=== PATIENT | male | born 1950 | race Caucasian/White ===

== ENCOUNTER → 2016-07-11 | Outpatient (CLI) | payer OTHER, MEDICARE ==
[~2016-07-11] MED LIST: AMLODIPINE BESY10 MG PO; CARVEDILOL12.5 MG PO; EPOGEN; MULTIVITAMIN1 CTB PO; NEXIUM40 MG PO; Rocaltrol0.25 MCG PO; SODIUM BICARB PO; TUMS EXTRA STR750 MG PO
[2016-07-11 12:27] LABS: BASO % 0.6 % (0.0-1.0); EOS # 0.2 10*3/uL (0.0-0.4); EOS % 3.7 % (1.0-4.0); HEMATOCRIT 30.3 % (42.0-52.0); HEMOGLOBIN 10.9 g/dl (14.0-18.0); IG # 0.1 10*3/uL (0.0-0.1); IRF 6.3 % (2.4-13.3); LYMPH # 0.6 10*3/uL (1.3-4.4); LYMPH % 11.8 % (27.0-41.0); MEAN CELL VOLUME 89.9 fl (80.0-94.0); MEAN CORPUSCULAR HGB 32.3 pg (27.0-31.0); MEAN PLATELET VOLUME 8.7 fl (9.6-12.3); MONO # 0.5 10*3/uL (0.1-1.0); MONO % 9.4 % (3.0-9.0); PLATELET COUNT AUTOMATED 259 10*3/uL (130-400); RED BLOOD COUNT 3.37 10*6/uL (4.50-5.90); RED CELL DISTRI WIDTH 11.9 % (0-14.5); RET-He 35.8 pg (32.1-37.9); RETICULOCYTE % 1.47 % (0.50-2.50); WHITE BLOOD COUNT 5.4 10*3/uL (4.8-10.8)
[2016-07-11 12:54] LABS: ALBUMIN 3.2 gm/dl (3.1-4.5); BILIRUBIN, TOTAL 0.6 mg/dl (0.2-1.0); POTASSIUM 3.1 mmol/L (3.5-5.1)
[2016-07-11 13:01] LABS: THYROID STIM HORMONE (HS) 1.12 uIU/ml (0.358-4.75)
[2016-07-11 14:17] LABS: VITAMIN D, 25-HYDROXY 25.6 ng/mL (30-100)
[2016-07-11 14:24] LABS: FERRITIN > 1650.0 ng/mL (22.0-322.0)
== END | disposition home or self-care (01) ==
LOC: LAB 12:02
PROVIDERS: Family Medicine
DX: R53.83 Other fatigue (principal); R79.89 Other specified abnormal findings of blood chemistry

== ENCOUNTER 2017-12-29 21:27 | Inpatient (IN) | payer OTHER, MEDICARE ==
[~2017-12-29] VITALS: Ht 162.5 cm; Wt 76.5 kg
--- NOTE | ~2017-12-29 | CON ---
[place], [place] REPORT OF CONSULTATION NAME: LOU FRAZIER UNIT #: [id number] ROOM: 517 DOCTOR: COTY DELGADO MD BIRTHDATE: [birth year] DOS: 12/30/2017 NEPHROLOGY CONSULTATION REASON FOR CONSULTATION: Management of peritoneal dialysis/the patient known to you. HISTORY OF PRESENT ILLNESS: This is a 67-year-old male who has a past medical history of end-stage renal disease. The patient has been on peritoneal dialysis, followed by my partner, Dr. Pathak. The patient undergoes CAPD 4 exchanges a day, it seems. He tells me his fill volumes have been around 2700 mL and he alternates 1.5 and 2.5 depending on various parameters. I am not clear of the details. He gives a history of hyperlipidemia, secondary hyperparathyroidism, anemia, hypertension. Recently, the patient was not feeling well and it seems he was evaluated for peritonitis. His peritoneal fluid showed cloudy consistency and had a high cell count. He was started on antibiotics with vancomycin and gentamicin intraperitoneal by my partner. Seems he received a few doses of the gentamicin. His culture recently grew out E. coli. The patient did not feel better. Therefore, he presented to the Emergency Room. He was found to have a little bit of a white count and was tachycardic and was admitted for further care. The patient has been performing CAPD himself while in the hospital. I did give instructions to give vancomycin and cefepime intravenously yesterday, which he received. Blood cultures and urine cultures have been sent as well. The patient feels much better today. He states his fluid is clearing up. Cultures have been pending otherwise. He denied current nausea, vomiting or diarrhea. He states his appetite has not been very good, but he is drinking water. He denied feeling volume overloaded presently, but he was starting to get a little bit of edema. ALLERGIES: No known drug allergies. HOME MEDICATIONS: Include a potassium, MiraLax, Zofran, multivitamin, Mag-Ox, Avapro, Auryxia, Nexium, Coreg, Tums, calcitriol. PAST MEDICAL HISTORY: 1. End-stage renal disease, on peritoneal dialysis as stated above. 2. PD catheter placement. 3. Hypertension. 4. GERD. 5. Hyperlipidemia. 6. History of knee surgery. 7. History of prostatectomy. 8. Tonsillectomy and adenoidectomy. 9. Anemia. 10. Hyperphosphatemia. 11. Secondary hyperparathyroidism. FAMILY HISTORY: There are no reports of chronic kidney disease otherwise noncontributory. [place], [place] REPORT OF CONSULTATION NAME: LOU FRAZIER UNIT #: [id number] ROOM: [facility] DOCTOR: COTY DELGADO MD BIRTHDATE: [birth year] SOCIAL HISTORY: No reports of tobacco currently, although he has a previous history of tobacco abuse. Drinks alcohol occasionally. No history of illicit drugs. REVIEW OF SYSTEMS: As per HPI, otherwise, a 10-point review of systems was reviewed and was negative. PHYSICAL EXAMINATION: VITAL SIGNS: Temperature 98.5, pulse 101, respiration rate 18, blood pressure 152/90. GENERAL: He is awake, alert, comfortable, no apparent distress. HEENT: He has no JVD. Sclerae are anicteric. Mucous membranes are somewhat dry. Pharynx is clear. NECK: Supple. Trachea is midline. There is no neck lymphadenopathy or thyromegaly. LUNGS: Clear. No crackles, wheezing, or rales. No tactile fremitus. He is not using accessory muscles of respiration. HEART: S1, S2. No rub, thrill or gallop. ABDOMEN: Mildly distended, soft and nontender to mild palpation. I did not appreciate organomegaly. EXTREMITIES: Had trace edema. There is no lower extremity lymphadenopathy. Distal pulses are 2+. SKIN: Showed no overt rash. There is no petechia or purpura. Skin temperature is warm. NEUROLOGIC: Awake, alert, following commands. Cranial nerves intact. LABORATORY DATA: Hemoglobin 9.4, white count 12.0, platelets 270. BUN 50, creatinine 9.8, glucose 125. Sodium 130, potassium 3.1, CO2 of 29, calcium 8.6, phosphorus 4.3, magnesium 1.5. IMPRESSION: 1. End-stage renal disease, on peritoneal dialysis with continuous ambulatory peritoneal dialysis. 2. Peritonitis with cultures growing Escherichia coli. 3. Leukocytosis. 4. Hypertension. 5. Anemia. 6. History of secondary hyperparathyroidism and hyperphosphatemia. 7. Hypokalemia and hypomagnesemia. PLAN: 1. Would stop IV fluids at this point and encourage oral intake and p.o. fluids. 2. Would replace potassium and magnesium. Place the patient on his daily potassium and magnesium supplementation. 3. The patient clinically is improving. We will follow all cultures and adjust antibiotics. He is on vancomycin and cefepime intravenously for now and I think that is acceptable until culture data is back. The patient was ordered 1 dose of intraperitoneal cefepime as I had discussed with the nurse for today. Eventually, he likely can resume his intraperitoneal gentamicin pending all [place], [place] REPORT OF CONSULTATION NAME: LOU FRAZIER UNIT #: [id number] ROOM: [facility] DOCTOR: COTY DELGADO MD BIRTHDATE: [birth year] culture data and discharge planning. 4. Dose medications for peritoneal dialysis. COTY DELGADO MD CM:CONSTR:REPORT OF CONSULTATION 1146 12/30/17 2158 interface
[2017-12-29 21:30] VITALS: BP 123/81
[2017-12-29 22:16] LABS: HEMATOCRIT 29.9 % (42.0-52.0); HEMOGLOBIN 10.8 g/dl (14.0-18.0); MEAN CELL VOLUME 92.9 fl (80.0-94.0); MEAN CORPUSCULAR HGB 33.5 pg (27.0-31.0); MEAN CORPUSCULAR HGB CONC 36.1 g/dl (33.0-37.0); MEAN PLATELET VOLUME 9.6 fl (9.6-12.3); PLATELET COUNT AUTOMATED 289 10*3/uL (130-400); RED BLOOD COUNT 3.22 10*6/uL (4.50-5.90); RED CELL DISTRI WIDTH 11.9 % (0-14.5); WHITE BLOOD COUNT 14.6 10*3/uL (4.8-10.8)
[2017-12-29 22:18] VITALS: BP 150/88
[2017-12-29] MEDS ORDERED: KLOR-CON SPRIN10 MEQ PO (22:20)
[2017-12-29] MEDS ORDERED: MIRALAX119 GM PO (22:21)
[2017-12-29] MEDS ORDERED: NEPHRONEX900 MCG/5 PO (22:22)
[2017-12-29] MEDS ORDERED: Zofran4 MG SL (22:22)
[2017-12-29] MEDS ORDERED: MAGNESIUM400 MG PO (22:23)
[2017-12-29] MEDS ORDERED: AVAPRO75 MG PO (22:23)
[2017-12-29] MEDS ORDERED: AURYXIA210 MG PO (22:24)
[2017-12-29] MEDS ORDERED: Rocaltrol0.25 MCG PO (22:25)
[2017-12-29 22:31] LABS: ALBUMIN 2.3 gm/dl (3.1-4.5); CREATININE 10.1 mg/dL (0.70-1.30)
[2017-12-29 22:36] LABS: TOTAL CELLS COUNTED 100 #CELLS
[2017-12-29 22:37] LABS: PLATELET SUFFICIENCY NORMAL (NORMAL)
[2017-12-29 22:38] VITALS: BP 140/95
[2017-12-29 23:40] VITALS: BP 160/87
[2017-12-30] VITALS: BP 160/87
[2017-12-30] MEDS ORDERED: DAILY VITE1 EACH PO (00:12)
[2017-12-30] MEDS ORDERED: GENTAMICIN3.5 GM OPH (00:15)
[2017-12-30 06:22] LABS: BASO % 0.2 % (0.0-1.0); EOS % 0.1 % (1.0-4.0); HEMATOCRIT 27.1 % (42.0-52.0); HEMOGLOBIN 9.4 g/dl (14.0-18.0); LYMPH # 0.6 10*3/uL (1.3-4.4); LYMPH % 4.6 % (27.0-41.0); MEAN CELL VOLUME 94.8 fl (80.0-94.0); MEAN CORPUSCULAR HGB 32.9 pg (27.0-31.0); MEAN CORPUSCULAR HGB CONC 34.7 g/dl (33.0-37.0); MEAN PLATELET VOLUME 9.7 fl (9.6-12.3); MONO # 0.9 10*3/uL (0.1-1.0); MONO % 7.3 % (3.0-9.0); NEUT # 10.2 10*3/uL (2.3-7.9); NEUT % 85.4 % (47.0-73.0); PLATELET COUNT AUTOMATED 270 10*3/uL (130-400); RED BLOOD COUNT 2.86 10*6/uL (4.50-5.90); RED CELL DISTRI WIDTH 11.9 % (0-14.5)
[2017-12-30 06:55] LABS: CREATININE 9.79 mg/dL (0.70-1.30); PHOSPHOROUS 4.3 mg/dL (2.5-4.9); POTASSIUM 3.1 mmol/L (3.5-5.1)
[2017-12-30 07:04] LABS: THYROID STIM HORMONE (HS) 0.934 uIU/ml (0.358-4.75)
[2017-12-30 08:00] VITALS: BP 152/90
[2017-12-30 09:06] LABS: VITAMIN D, 25-HYDROXY 14.8 ng/mL (30-100)
[2017-12-30 10:38] LABS: BILIRUBIN NEGATIVE (NEGATIVE); BLOOD TRACE-INTACT (NEGATIVE); CLARITY CLEAR (CLEAR); COLOR YELLOW (YELLOW); GLUCOSE NEGATIVE (NEGATIVE); KETONE NEGATIVE (NEGATIVE); LEUKO ESTERASE NEGATIVE (NEGATIVE); NITRITE NEGATIVE (NEGATIVE); SPECIFIC GRAVITY 1.015 (1.005-1.030)
[2017-12-30 10:59] LABS: BACTERIA 1+; EPITHELIAL CELLS 0-2
[2017-12-30 12:00] VITALS: BP 180/92
[2017-12-30 14:00] VITALS: BP 170/80
[2017-12-30 16:00] VITALS: BP 138/72
[2017-12-30 20:00] VITALS: BP 112/56
[2017-12-31] VITALS: BP 108/50
[2017-12-31 06:25] LABS: HEMATOCRIT 25.8 % (42.0-52.0); HEMOGLOBIN 8.9 g/dl (14.0-18.0); MEAN CELL VOLUME 94.9 fl (80.0-94.0); MEAN CORPUSCULAR HGB 32.7 pg (27.0-31.0); MEAN CORPUSCULAR HGB CONC 34.5 g/dl (33.0-37.0); MEAN PLATELET VOLUME 9.4 fl (9.6-12.3); PLATELET COUNT AUTOMATED 249 10*3/uL (130-400); RED BLOOD COUNT 2.72 10*6/uL (4.50-5.90)
[2017-12-31 06:45] LABS: CREATININE 9.41 mg/dL (0.70-1.30); POTASSIUM 3.4 mmol/L (3.5-5.1)
[2017-12-31 07:09] LABS: PLATELET SUFFICIENCY NORMAL (NORMAL); TOTAL CELLS COUNTED 100 #CELLS
[2017-12-31 08:00] VITALS: BP 142/63
[2017-12-31 12:00] VITALS: BP 137/66
[2017-12-31 16:00] VITALS: BP 141/67
[2017-12-31 20:00] VITALS: BP 143/69
[2018-01-01] VITALS: BP 109/61
[2018-01-01 06:54] LABS: HEMATOCRIT 25.5 % (42.0-52.0); HEMOGLOBIN 8.8 g/dl (14.0-18.0); MEAN CELL VOLUME 95.9 fl (80.0-94.0); MEAN CORPUSCULAR HGB 33.1 pg (27.0-31.0); MEAN CORPUSCULAR HGB CONC 34.5 g/dl (33.0-37.0); MEAN PLATELET VOLUME 9.8 fl (9.6-12.3); PLATELET COUNT AUTOMATED 281 10*3/uL (130-400); RED BLOOD COUNT 2.66 10*6/uL (4.50-5.90); RED CELL DISTRI WIDTH 11.9 % (0-14.5); WHITE BLOOD COUNT 9.3 10*3/uL (4.8-10.8)
[2018-01-01 07:05] LABS: CREATININE 9.86 mg/dL (0.70-1.30)
[2018-01-01 07:10] LABS: POTASSIUM 3.1 mmol/L (3.5-5.1)
[2018-01-01 07:23] LABS: BASOPHILS 1 % (0-1); TOTAL CELLS COUNTED 100 #CELLS
[2018-01-01 07:24] LABS: PLATELET SUFFICIENCY NORMAL (NORMAL); POLYCHROMASIA SLIGHT
[2018-01-01 08:00] VITALS: BP 134/76
[2018-01-01 12:00] VITALS: BP 125/67
[2018-01-01 16:00] VITALS: BP 134/62
[2018-01-01 20:00] VITALS: BP 94/62
[2018-01-02] VITALS: BP 147/71
[2018-01-02 06:51] LABS: HEMATOCRIT 25.9 % (42.0-52.0); MEAN CELL VOLUME 95.2 fl (80.0-94.0); MEAN CORPUSCULAR HGB 33.1 pg (27.0-31.0); MEAN CORPUSCULAR HGB CONC 34.7 g/dl (33.0-37.0); MEAN PLATELET VOLUME 9.3 fl (9.6-12.3); PLATELET COUNT AUTOMATED 298 10*3/uL (130-400); RED BLOOD COUNT 2.72 10*6/uL (4.50-5.90); RED CELL DISTRI WIDTH 11.9 % (0-14.5); WHITE BLOOD COUNT 13.4 10*3/uL (4.8-10.8)
[2018-01-02 07:25] LABS: CREATININE 10.1 mg/dL (0.70-1.30); POTASSIUM 3.7 mmol/L (3.5-5.1)
[2018-01-02 07:44] LABS: PLATELET SUFFICIENCY NORMAL (NORMAL); POLYCHROMASIA SLIGHT; TOTAL CELLS COUNTED 100 #CELLS; TOXIC GRANULATION SLIGHT
[2018-01-02 12:00] VITALS: BP 116/54
== END 2018-01-02 13:30 | disposition home or self-care (01) | DRG 919 ==
LOC: ED 21:27 → 5E 22:42 → EDHOLD 22:42 → 5E 22:50
PROVIDERS: Internal Medicine; Nurse Practitioner Family; Student in an Organized Health Care Education/Training Program
PROC: 5A1D70Z Performance of Urinary Filtration, Intermittent, Less than 6 Hours Per Day (ICD-10-PCS; principal; 2018-01-01)
DX: T85.71XA Infection and inflammatory reaction due to peritoneal dialysis catheter, initial encounter (principal); A41.51 Sepsis due to Escherichia coli [E. coli]; K65.9 Peritonitis, unspecified; E43 Unspecified severe protein-calorie malnutrition; N18.6 End stage renal disease; E87.1 Hypo-osmolality and hyponatremia; I12.0 Hypertensive chronic kidney disease with stage 5 chronic kidney disease or end stage renal disease; D64.9 Anemia, unspecified; D72.810 Lymphocytopenia; E87.6 Hypokalemia; E87.8 Other disorders of electrolyte and fluid balance, not elsewhere classified; R73.9 Hyperglycemia, unspecified; K21.9 Gastro-esophageal reflux disease without esophagitis; E78.5 Hyperlipidemia, unspecified; E21.1 Secondary hyperparathyroidism, not elsewhere classified; Z87.891 Personal history of nicotine dependence; Z90.79 Acquired absence of other genital organ(s); Z99.2 Dependence on renal dialysis; Z80.0 Family history of malignant neoplasm of digestive organs; Z84.89 Family history of other specified conditions; Z79.899 Other long term (current) drug therapy; Z90.89 Acquired absence of other organs; Z68.27 Body mass index [BMI] 27.0-27.9, adult; Y83.8 Other surgical procedures as the cause of abnormal reaction of the patient, or of later complication, without mention of misadventure at the time of the procedure; Y92.89 Other specified places as the place of occurrence of the external cause

== ENCOUNTER 2018-01-12 10:01 | Inpatient (IN) | payer OTHER, MEDICARE ==
[~2018-01-12] VITALS: Ht 165.1 cm; Wt 78.1 kg
--- NOTE | ~2018-01-12 | CON ---
[place], [place] REPORT OF CONSULTATION NAME: LOU FRAZIER [facility] #: [id number] UNIT #: [id number] ROOM: 426 DOCTOR: NATIVIDAD BAPTISTE MDNIGELBERTIN BIRTHDATE: [birth year] DOS: 01/14/2018 GASTROENDOSCOPIC CONSULTATION REPORT HISTORY OF PRESENT ILLNESS: A 68-year-old patient who presented with recurrent emesis, hematemesis. The patient with a peritoneal dialysis dependency, chronic renal failure, dialysis dependent 5 years. He is on a renal transplant candidate list. His peritoneal liquid has been sent for cultures and cultures have been negative; however, he is on antibiotic. PAST MEDICAL HISTORY: Associated systemic hypertension, renal failure, gastroesophageal reflux, and hyperlipidemia. PAST SURGICAL HISTORY: Prostatectomy, peritoneal dialysis catheter placement, tonsillectomy, adenoidectomy. SOCIAL HISTORY: Passive smoker, social alcohol user. FAMILY HISTORY: Noncontributory. ALLERGIES: No known medications. MEDICATIONS: List has been reviewed. REVIEW OF SYSTEMS: HEENT: Denies double vision, blurred vision. RESPIRATORY: Denies shortness of breath. CARDIOVASCULAR: Denies acute chest pain. DIGESTIVE SYSTEM: Hematemesis, nausea, vomiting. PHYSICAL EXAMINATION: VITAL SIGNS: Stable. HEENT: Head normocephalic, nontraumatic. Eyes: Pupils round, reactive. Sclerae nonicteric. Mouth and buccal mucosa benign. NECK: Supple, no thyromegaly, no cervical lymphadenopathy. CHEST: Symmetric anatomy, equal expansion. No wheeze, no rhonchi. HEART: Normal sinus rhythm, no gallop, no murmur. ABDOMEN: Soft. No hepato-organomegaly. Bowel sounds present. Peritoneal dialysis catheter in the left lower quadrant, functional. EXTREMITIES: 1+ pedal edema. NEUROLOGIC: Fully alert, oriented to time, place, person. Sensory, motor intact. Cranial nerves 2-12 intact. LABORATORY DATA: His labs and records reviewed. Initially, he had hypokalemia that has been addressed. His creatinine has been 11.5 with a GFR of 4 and BUN of 57. Lactic acid 1.2. Liver function test normal, alkaline phosphatase 103, amylase and lipase has been normal. INR 1.2. H and H of 9 and 28 with white blood cell of 20 initially. His labs reviewed. His records reviewed. His CT scan of the abdomen and pelvis reassessed. No acute intraperitoneal pathology has been reported. Blood cultures negative and peritoneal dialysate culture [place], [place] REPORT OF CONSULTATION NAME: LOU FRAZIER UNIT #: [id number] ROOM: 426 DOCTOR: EMILE MCKEON,ALEXA BIRTHDATE: [birth year] negative. Ultrasound of the liver, gallbladder sludge, and nonspecific gallbladder wall thickening, although no discrete cholelithiasis identified. The common duct is dilated measuring to 10 mm. Correlation with LFTs were recommended, which was normal. IMPRESSION: Hematemesis, recurrent emesis, renal failure, peritoneal dialysis dependent 4 times a day, ruling out sepsis, ruling out gastroesophageal ulcer disease, systemic hypertension. PLAN AND DISCUSSION: We are going to organize an EGD for concerns above, anemia is expected, protein-calorie malnutrition noticed. Etiology of upper GI bleed under investigation at the present time as mentioned above. Other adjunctive diagnoses as outlined in paragraph past medical and surgical history. The patient already covered on Zosyn. Case has been discussed with his family at bedside. ALEXA BAPTISTE MD CM:CONSTR:REPORT OF CONSULTATION 1826 01/15/18 0437 interface
--- NOTE | ~2018-01-12 | O ---
[place], [place] OPERATIVE NOTE NAME: [facility]RAZIER [id number] UNIT #: [id number] ROOM: 426 DOCTOR: RUFUS MCKEONRUCHI BARBOZAEN BIRTHDATE: [birth year] DOS: 01/15/2018 PREOPERATIVE DIAGNOSES: 1. Chronic renal failure. 2. Secondary peritonitis, infected peritoneal dialysis catheter. POSTOPERATIVE DIAGNOSES: 1. Chronic renal failure. 2. Secondary peritonitis, infected peritoneal dialysis catheter. PROCEDURES: 1. Insertion of left subclavian temporary vascular access for dialysis. 2. Removal of peritoneal dialysis catheter. SURGEON: Dr. Hooper. SALON SHAMPOO ASSISTANT: Chucky, PGY2 and Michelle, medical student year 3. DRAINS: None. INDICATIONS: This is a 68-year-old gentleman, on peritoneal dialysis for roughly 5 years, who presented recently with an episode of secondary peritonitis dialysis catheter treated as an outpatient with resistance/recurrent infection. He is now for removal of his catheter as the source as well as for placement of temporary venous access for hemodialysis while his peritonitis clears. Risks, benefits and possible complications were discussed with the patient at the bedside preoperatively at length and he agrees informed consent. DESCRIPTION OF PROCEDURE: The patient was brought to the operating suite and placed on the table in the supine position. Adequate conscious sedation was obtained by the anesthesia staff. The upper chest and bilateral necks were prepped and draped in the usual sterile fashion. With adequate conscious sedation, the patient was placed in Trendelenburg position and the field block was placed at the infraclavicular area for attempted insertion of a subclavian temporary dialysis catheter. Field block was placed in the infraclavicular space. Once this was done, the subclavian vein was cannulated without difficulty percutaneously and a guidewire passed by Seldinger technique under fluoroscopic visualization. The skin incision was slightly lengthened at the insertion point of the guidewire and then the tract was serially dilated with the small dilators, which were supplied with the temporary Vas-Cath kit. Once this was done under direct fluoroscopic visualization, a 14.5-Spanish dual lumen catheter was passed into the central venous system over the guidewire under direct fluoroscopic control and guidewire removed. This was seen to have adequate withdrawal of venous blood and then was flushed first with saline and then hep locked with 1.6 mL and 1.2 mL of heparin in the proximal and distal ports respectively. This was then secured with 3-0 nylon and dressing applied. Attention was then directed to removal of his peritoneal dialysis catheter. The patient was reprepped and draped of the abdomen in the usual sterile fashion. With the patient still under monitored anesthesia control and adequate conscious [place], [place] OPERATIVE NOTE NAME: LOU FRAZIER UNIT #: [id number] ROOM: 426 DOCTOR: RUCHI HOOPER MD BIRTHDATE: [birth year] sedation, a field block was placed around the infraumbilical incision for the patient's procedure prior placement of this peritoneal dialysis catheter. Small incision was made and carried through the subcutaneous fat down to the anterior fascia. This was incised sharply with additional injection of a local anesthetic using 0.5% Marcaine. Dissection was carried down through the anterior fascia with a small transverse incision and bluntly and with cautery through the muscle to expose the catheter down to the Oniel cuff at the peritoneal surface. This was quite adherent due to the chronic nature of his dialysis catheter (having been in place for 5 years), and given this, the patient was converted to a general anesthetic by the Anesthesia staff without difficulty. Once this was done, a little bit of further Marcaine was injected into the peritoneal surface and around the cuff and this was then incised with sharp and cautery dissection, catching the corner of this with a stay suture of 3-0 Vicryl. This was released circumferentially and the patient immediately had a randhawa of somewhat acidic fluid into the small incision with the catheter then removed. Tip was placed sterilely for culture and cut away from the rest of the catheter, which was then discarded. With the specimen obtained, attention was directed to closure in this small area of roughly 12-13 mm of dissection around the peritoneum was then closed en srikanth to close the peritoneum and the rectus fascia, using [id number] sutures of 2-0 Vicryl and tying these together. The fascia was then closed over this with 2-0 Vicryl and the skin edges were then approximated with subdermal 3-0 Vicryl and subcuticular 4-0 Monocryl once the wound was checked for hemostasis and seemed to be adequate. ____ point of the catheter at the skin lateral, this was left open to allow the subcutaneous tunnel from his tunneled peritoneal dialysis catheter to drain adequately and gauze dressing was applied. The patient tolerated this well. A total of 15 mL of local anesthetic injected. He was allowed to awaken in the room and was taken to the recovery area after extubation with all sponge, needle and instrument counts correct at the end of the procedure. He had chest x-ray done postoperative, which shows good position of the catheter and no pneumothorax. RUCHI HOOPER MD CM:OPRECORD:OPERATIVE NOTE 1702 [id number] RUCHI HOOPER MD 01/15/18 1746 interface
--- NOTE | ~2018-01-12 | O ---
[place], [place] OPERATIVE NOTE NAME: [facility]RAZIER [id number] UNIT #: [id number] ROOM: 426 DOCTOR: NATIVIDAD BAPTISTE MDNIGELBERTIN BIRTHDATE: [birth year] DOS: 01/14/2018 INDICATIONS: This 68-year-old was presented with hematemesis. The patient with renal failure and peritoneal dialysis dependent. The patient's acute issues have been addressed, stabilized for EGD. PROCEDURE: Today's procedure part of investigation is EGD plus biopsy photographic series. PREMEDICATION: Propofol. SCOPE: Olympus forward-viewing gastroscope Q10 video. REPORT: After putting the patient in left lateral position and application of lubricant to the scope, the scope was introduced; thereafter, under direct visualization, advanced through the length of esophagus without difficulty. Diffuse esophageal ulcerations, particularly at lower esophagus was noticed. These are secondary to bile reflux. Hiatal hernia was noticed. The scarring of the ulceration on the ulcerations is nearly blocking the lower esophagus sphincter. Meticulously scope was negotiated through this anatomy into the gastric pouch into duodenal bulb, second part, which is consistent with moderate duodenitis. Antral biopsy for H. pylori was obtained. GI reflexion of the scope reveals hypertrophic folds of the cardia of the stomach. Photographed bile was suctioned out at the distant margin of one of the esophageal ulcers, also biopsied for documentation of scar as well as photographic series. The patient extubated, tolerated procedure well. IMPRESSION: An diffuse esophageal ulcers secondary to reflux, hiatal hernia, bile reflux, duodenitis, gastritis. PLAN AND DISCUSSION: we need to keep this gentleman on a double dose Protonix as well as seeing if he can tolerate 1 gram of Carafate slurry 2 hours before meals and Gaviscon 1 tablet at bedtime, elevation of the head of the bed 6 inch all time. This patient definitely benefit from having some prokinetics on board i.e. metoclopramide, if he does not show any adverse side effect I would recommend 2.5 mg 1 hour before dinner is to be considered. We will discuss Nephrology and increasing gait over 1 week If he did not find any tardive dyskinesia symptoms in him at least 5 mg before dinner. His diet to be GERD. The renal diet and aggressive ulcer therapy is to prevent as well as heel existing problem regarding his reflux. [place], [place] OPERATIVE NOTE NAME: LOU FRAZIER UNIT #: [id number] ROOM: 426 DOCTOR: EMILE MCKEON,ALEXA BIRTHDATE: [birth year] ALEXA BAPTISTE MD CM:OPRECORD:OPERATIVE NOTE 56 45 ALEXA BAPTISTE MD 01/14/181946 interface
--- NOTE | ~2018-01-12 | EKG ---
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
--- NOTE | ~2018-01-12 | CON ---
[place], [place] REPORT OF CONSULTATION NAME: LOU FRAZIER UNIT #: [id number] ROOM: 426 DOCTOR: TED CARCAMO MD BIRTHDATE: [birth year] DOS: 01/12/2018 REASON FOR CONSULTATION: PD associated peritonitis. HISTORY OF PRESENT ILLNESS: This is a 68-year-old male recently seen by me for PD associated peritonitis with E. coli and was getting 2 grams cefazolin with dialysis sessions and according to the patient, he never felt better and was actually getting worse with more abdominal pain, not with fever or chills. No nausea, vomiting, no diarrhea, no urinary discomfort. On presentation, his labs noted WBC of 20.6. Lactic acid was normal. His imaging, CT scan of abdomen has been ordered, pending results. He has been started on vancomycin and Zosyn. His fluid from PD dialysate has been sent for cultures. PAST MEDICAL HISTORY: Significant for end-stage renal disease, on peritoneal dialysis, coagulopathy, hyperlipidemia. PAST SURGICAL HISTORY: History of knee surgery, history of prostatectomy, tonsillectomy, adenectomy. SOCIAL HISTORY: Former smoker, nonalcoholic, no illicit drug use. FAMILY HISTORY: Father , in a motor vehicle accident. Mother has history of breast cancer. ALLERGIES: No known drug allergies. MEDICATIONS: As per the EMR. REVIEW OF SYSTEMS: A 12-point review of systems has been done and pertinent negatives positives were included in HPI, rest are noncontributory. PHYSICAL EXAMINATION: VITAL SIGNS: Temperature 97.8, pulse rate 118, respiratory rate 16, blood pressure 147/89, oxygen saturation 95% on room air. GENERAL: The patient is alert, oriented x 3, in moderate distress. HEENT: Normocephalic, atraumatic. EYES: No lesions. Nonicteric. ENT: No lesions. NECK: Trachea midline. No thyromegaly. HEART: S1, S2 normal. No murmurs, rubs or gallops. LUNGS: Air entry bilaterally equal. No wheeze or crackles. ABDOMEN: Distended with rebound tenderness and guarding or rigidity. EXTREMITIES: 2+ pitting edema. NEUROLOGIC: Cranial nerves 2-12 grossly intact. LABORATORY DATA AND IMAGING: Reviewed mentioned in the HPI. ASSESSMENT AND PLAN: PD associated peritonitis. Rule out secondary causes of peritonitis. [place], [place] REPORT OF CONSULTATION NAME: LOU FRAZIER UNIT #: [id number] ROOM: 426 DOCTOR: TED CARCAMO MD BIRTHDATE: [birth year] PLAN: Agree with getting a CT scan of abdomen and pelvis. Okay to continue broad spectrum antibiotics with vancomycin and Zosyn. Discussed plan with Dr. Pathak from Nephrology and if at all needed his PD catheter can be removed and a temporary hemodialysis should be considered. Pain management as per the primary team. Thank you for your consult. Please call for any questions. Gisella Carcamo MD CM:CONSTR:REPORT OF CONSULTATION 11 01/28/18 0917 interface
[2018-01-12 10:01] VITALS: BP 145/81
[~2018-01-12 10:01] MED LIST changes: +AURYXIA210 MG PO; +AVAPRO75 MG PO; +DAILY VITE1 EACH PO; +GENTAMICIN3.5 GM OPH; +KLOR-CON SPRIN10 MEQ PO; +MAGNESIUM400 MG PO; +MIRALAX119 GM PO; +NEPHRONEX900 MCG/5 PO; +Zofran4 MG SL
[2018-01-12 10:17] LABS: HEMATOCRIT 28.8 % (42.0-52.0); HEMOGLOBIN 9.6 g/dl (14.0-18.0); MEAN CELL VOLUME 98.6 fl (80.0-94.0); MEAN CORPUSCULAR HGB 32.9 pg (27.0-31.0); MEAN CORPUSCULAR HGB CONC 33.3 g/dl (33.0-37.0); MEAN PLATELET VOLUME 8.8 fl (9.6-12.3); PLATELET COUNT AUTOMATED 527 10*3/uL (130-400); RED BLOOD COUNT 2.92 10*6/uL (4.50-5.90); RED CELL DISTRI WIDTH 12.3 % (0-14.5); WHITE BLOOD COUNT 20.6 10*3/uL (4.8-10.8)
[2018-01-12 10:34] LABS: ALBUMIN 1.3 gm/dl (3.1-4.5); ALKALINE PHOSPHATASE 108 U/L (45-117); BUN 57 mg/dl (7-24); CHLORIDE 91 mmol/L (98-107); POTASSIUM 3.2 mmol/L (3.5-5.1); SGOT/AST 23 IU/L (3-35); SGPT/ALT < 6 U/L (12-78); SODIUM 131 mmol/L (136-145); TOTAL PROTEIN 5.5 gm/dL (6.4-8.2)
[2018-01-12 10:39] LABS: PLATELET SUFFICIENCY HIGH (NORMAL); POLYCHROMASIA SLIGHT; TOTAL CELLS COUNTED 100 #CELLS
[2018-01-12 12:00] VITALS: BP 147/89
[2018-01-12] MEDS ORDERED: HEPARIN IV (13:16)
[2018-01-12] MEDS ORDERED: SODIUM CHLORIDE IV (13:16)
[2018-01-12] MEDS ORDERED: MEGACE 40400 MG/10 PO (13:17)
[2018-01-12] MEDS ORDERED: CEFAZOLIN1 GM/10 M1 IV (13:18)
[2018-01-12 14:51] LABS: INTERNATIONAL NORM RATIO 2.7 (2.0-3.5)
[2018-01-12 15:07] LABS: TROPONIN I 0.017 ng/ml (<0.045)
[2018-01-12 16:00] VITALS: BP 139/71
[2018-01-12 17:47] LABS: BILIRUBIN NEGATIVE (NEGATIVE); BLOOD 1+ (NEGATIVE); CLARITY CLEAR (CLEAR); COLOR YELLOW (YELLOW); GLUCOSE NEGATIVE (NEGATIVE); KETONE NEGATIVE (NEGATIVE); LEUKO ESTERASE NEGATIVE (NEGATIVE); NITRITE NEGATIVE (NEGATIVE); PH 7.5 (5.0-9.0); UROBILINOGEN 0.2 E.U./dl (0.2-1.0)
[2018-01-12 17:56] LABS: BACTERIA 2+
[2018-01-12 19:46] LABS: BODY FLUID WBC 1758 /uL
[2018-01-12 19:55] LABS: BF LYMPHOCYTES 1 %; BF MACROPHAGES 10 %; BF NEUTROPHILS 89 %
[2018-01-12 20:00] VITALS: BP 151/72
[2018-01-13] VITALS (12 sets, daily range): BP systolic 114–156; BP diastolic 58–77
[2018-01-13 06:32] LABS: ACT PARTIAL THROMBO TIME 39.2 SECONDS (20.8-31.5); INTERNATIONAL NORM RATIO 2.5 (2.0-3.5)
[2018-01-13 06:33] LABS: HEMATOCRIT 22.9 % (42.0-52.0); MEAN CELL VOLUME 99.1 fl (80.0-94.0); MEAN CORPUSCULAR HGB 32.5 pg (27.0-31.0); MEAN CORPUSCULAR HGB CONC 32.8 g/dl (33.0-37.0); MEAN PLATELET VOLUME 9.3 fl (9.6-12.3); PLATELET COUNT AUTOMATED 442 10*3/uL (130-400); RED BLOOD COUNT 2.31 10*6/uL (4.50-5.90); RED CELL DISTRI WIDTH 12.4 % (0-14.5); WHITE BLOOD COUNT 14.9 10*3/uL (4.8-10.8)
[2018-01-13 06:38] LABS: HEMOGLOBIN 7.5 g/dl (14.0-18.0)
[2018-01-13 06:42] LABS: ALBUMIN 1.9 gm/dl (3.1-4.5); ALKALINE PHOSPHATASE 82 U/L (45-117); BUN 63 mg/dl (7-24); CHLORIDE 92 mmol/L (98-107); PHOSPHOROUS 5.8 mg/dL (2.5-4.9); POTASSIUM 3.4 mmol/L (3.5-5.1); SGOT/AST 18 IU/L (3-35); SODIUM 133 mmol/L (136-145); TOTAL PROTEIN 5.1 gm/dL (6.4-8.2)
[2018-01-13 06:43] LABS: SGPT/ALT < 6 U/L (12-78)
[2018-01-13 07:22] LABS: BASOPHILS 2 % (0-1); PLATELET SUFFICIENCY HIGH (NORMAL); POLYCHROMASIA SLIGHT; TOTAL CELLS COUNTED 100 #CELLS
[2018-01-13 07:57] LABS: VITAMIN D, 25-HYDROXY 15.7 ng/mL (30-100)
[2018-01-13 15:13] LABS: HEMOGLOBIN 8.2 g/dl (14.0-18.0)
[2018-01-14] VITALS (15 sets, daily range): BP systolic 146–163; BP diastolic 66–86
[2018-01-14 06:35] LABS: ALKALINE PHOSPHATASE 79 U/L (45-117); CHLORIDE 94 mmol/L (98-107); POTASSIUM 3.4 mmol/L (3.5-5.1); SGOT/AST 18 IU/L (3-35); SODIUM 135 mmol/L (136-145); TOTAL PROTEIN 4.9 gm/dL (6.4-8.2)
[2018-01-14 06:37] LABS: BUN 73 mg/dl (7-24); SGPT/ALT < 6 U/L (12-78)
[2018-01-14 07:04] LABS: HEMATOCRIT 23.4 % (42.0-52.0); HEMOGLOBIN 7.8 g/dl (14.0-18.0); MEAN CORPUSCULAR HGB 31.6 pg (27.0-31.0); MEAN CORPUSCULAR HGB CONC 33.3 g/dl (33.0-37.0); MEAN PLATELET VOLUME 9.6 fl (9.6-12.3); PLATELET COUNT AUTOMATED 400 10*3/uL (130-400); RED BLOOD COUNT 2.47 10*6/uL (4.50-5.90); RED CELL DISTRI WIDTH 16.4 % (0-14.5); WHITE BLOOD COUNT 13.7 10*3/uL (4.8-10.8)
[2018-01-14 07:12] LABS: MEAN CELL VOLUME 94.7 fl (80.0-94.0)
[2018-01-14 07:18] LABS: ACT PARTIAL THROMBO TIME 34.3 SECONDS (20.8-31.5); INTERNATIONAL NORM RATIO 2.1 (2.0-3.5)
[2018-01-14 08:16] LABS: BASOPHILS 1 % (0-1); PLATELET SUFFICIENCY HIGH (NORMAL); POLYCHROMASIA SLIGHT; TOTAL CELLS COUNTED 100 #CELLS
[2018-01-14 21:03] LABS: HEMOGLOBIN 9.2 g/dl (14.0-18.0)
[2018-01-15] VITALS (10 sets, daily range): BP systolic 139–161; BP diastolic 77–93
[2018-01-15 07:02] LABS: HEMATOCRIT 27.5 % (42.0-52.0); HEMOGLOBIN 9.2 g/dl (14.0-18.0); MEAN CELL VOLUME 92.9 fl (80.0-94.0); MEAN CORPUSCULAR HGB 31.1 pg (27.0-31.0); MEAN CORPUSCULAR HGB CONC 33.5 g/dl (33.0-37.0); PLATELET COUNT AUTOMATED 349 10*3/uL (130-400); RED BLOOD COUNT 2.96 10*6/uL (4.50-5.90); RED CELL DISTRI WIDTH 17.7 % (0-14.5); WHITE BLOOD COUNT 15.7 10*3/uL (4.8-10.8)
[2018-01-15 07:33] LABS: CREATININE 14.4 mg/dL (0.70-1.30); POTASSIUM 3.4 mmol/L (3.5-5.1)
[2018-01-15 07:36] LABS: BASOPHILS 1 % (0-1); PLATELET SUFFICIENCY NORMAL (NORMAL); TOTAL CELLS COUNTED 100 #CELLS
[2018-01-16 07:06] LABS: HEPATITIS B SURFACE AG Negative (Negative); HEPATITIS C VIRUS ANTIBODY <0.1 s/co (0.0-0.9)
== END 2018-01-15 18:43 | disposition short-term general hospital (02) | DRG 919 ==
LOC: ED 10:01 → 4E 12:22 → EDHOLD 12:22 → 4E 12:32
PROVIDERS: Emergency Medicine; Internal Medicine; Internal Medicine Nephrology; Student in an Organized Health Care Education/Training Program
PROC: 30233N1 Transfusion of Nonautologous Red Blood Cells into Peripheral Vein, Percutaneous Approach (ICD-10-PCS; principal; 2018-01-13)
PROC: 0DB58ZX Excision of Esophagus, Via Natural or Artificial Opening Endoscopic, Diagnostic (ICD-10-PCS; 2018-01-14)
PROC: 0DB78ZX Excision of Stomach, Pylorus, Via Natural or Artificial Opening Endoscopic, Diagnostic (ICD-10-PCS; 2018-01-14)
PROC: 02H633Z Insertion of Infusion Device into Right Atrium, Percutaneous Approach (ICD-10-PCS; 2018-01-15)
PROC: 5A1D70Z Performance of Urinary Filtration, Intermittent, Less than 6 Hours Per Day (ICD-10-PCS; 2018-01-15)
PROC: 0WPGX3Z Removal of Infusion Device from Peritoneal Cavity, External Approach (ICD-10-PCS; 2018-01-15)
DX: T85.71XA Infection and inflammatory reaction due to peritoneal dialysis catheter, initial encounter (principal); A41.9 Sepsis, unspecified organism; K65.9 Peritonitis, unspecified; E43 Unspecified severe protein-calorie malnutrition; N18.6 End stage renal disease; K29.71 Gastritis, unspecified, with bleeding; K29.81 Duodenitis with bleeding; E87.1 Hypo-osmolality and hyponatremia; D68.9 Coagulation defect, unspecified; I12.0 Hypertensive chronic kidney disease with stage 5 chronic kidney disease or end stage renal disease; D62 Acute posthemorrhagic anemia; E87.6 Hypokalemia; E87.8 Other disorders of electrolyte and fluid balance, not elsewhere classified; K44.9 Diaphragmatic hernia without obstruction or gangrene; E78.5 Hyperlipidemia, unspecified; R73.9 Hyperglycemia, unspecified; E83.39 Other disorders of phosphorus metabolism; K21.0 Gastro-esophageal reflux disease with esophagitis; Y83.8 Other surgical procedures as the cause of abnormal reaction of the patient, or of later complication, without mention of misadventure at the time of the procedure; Z90.89 Acquired absence of other organs; Z90.79 Acquired absence of other genital organ(s); Z79.899 Other long term (current) drug therapy; Z99.2 Dependence on renal dialysis; Z87.891 Personal history of nicotine dependence; Z80.0 Family history of malignant neoplasm of digestive organs; Z84.89 Family history of other specified conditions; Y92.89 Other specified places as the place of occurrence of the external cause; Z68.25 Body mass index [BMI] 25.0-25.9, adult; K83.8 Other specified diseases of biliary tract

== ENCOUNTER 2018-02-15 15:24 | Inpatient (IN) | payer OTHER, MEDICARE ==
[~2018-02-15] VITALS: Ht 165.1 cm; Wt 65.3 kg
[2018-02-15] VITALS (8 sets, daily range): BP systolic 114–165; BP diastolic 68–87
[~2018-02-15 15:24] MED LIST changes: +CEFAZOLIN1 GM/10 M1 IV; +HEPARIN IV; +MEGACE 40400 MG/10 PO; +SODIUM CHLORIDE IV
[2018-02-15 19:54] LABS: HEMATOCRIT 21.1 % (42.0-52.0); HEMOGLOBIN 6.7 g/dl (14.0-18.0); MEAN CELL VOLUME 93.8 fl (80.0-94.0); MEAN CORPUSCULAR HGB 29.8 pg (27.0-31.0); MEAN CORPUSCULAR HGB CONC 31.8 g/dl (33.0-37.0); MEAN PLATELET VOLUME 9.6 fl (9.6-12.3); PLATELET COUNT AUTOMATED 373 10*3/uL (130-400); RED BLOOD COUNT 2.25 10*6/uL (4.50-5.90); RED CELL DISTRI WIDTH 15.9 % (0-14.5); WHITE BLOOD COUNT 14.6 10*3/uL (4.8-10.8)
[2018-02-15 20:30] LABS: BASOPHILS 1 % (0-1); PLATELET SUFFICIENCY NORMAL (NORMAL); TOTAL CELLS COUNTED 100 #CELLS; TOXIC GRANULATION SLIGHT
[2018-02-15 20:32] LABS: STOMATOCYTE FEW
[2018-02-15 23:40] LABS: HEMATOCRIT 23.1 % (42.0-52.0); HEMOGLOBIN 7.5 g/dl (14.0-18.0); MEAN CELL VOLUME 91.7 fl (80.0-94.0); MEAN CORPUSCULAR HGB 29.8 pg (27.0-31.0); MEAN CORPUSCULAR HGB CONC 32.5 g/dl (33.0-37.0); MEAN PLATELET VOLUME 9.8 fl (9.6-12.3); PLATELET COUNT AUTOMATED 357 10*3/uL (130-400); RED BLOOD COUNT 2.52 10*6/uL (4.50-5.90); RED CELL DISTRI WIDTH 15.7 % (0-14.5); WHITE BLOOD COUNT 12.6 10*3/uL (4.8-10.8)
[2018-02-16] VITALS: BP 154/86
[2018-02-16] LABS: BASOPHILS 1 % (0-1); TOTAL CELLS COUNTED 100 #CELLS
[2018-02-16 00:01] LABS: PLATELET SUFFICIENCY NORMAL (NORMAL)
[2018-02-16 07:03] LABS: HEMATOCRIT 24.6 % (42.0-52.0); HEMOGLOBIN 7.9 g/dl (14.0-18.0); MEAN CELL VOLUME 92.1 fl (80.0-94.0); MEAN CORPUSCULAR HGB 29.6 pg (27.0-31.0); MEAN CORPUSCULAR HGB CONC 32.1 g/dl (33.0-37.0); MEAN PLATELET VOLUME 9.8 fl (9.6-12.3); PLATELET COUNT AUTOMATED 379 10*3/uL (130-400); RED BLOOD COUNT 2.67 10*6/uL (4.50-5.90); RED CELL DISTRI WIDTH 15.9 % (0-14.5); WHITE BLOOD COUNT 13.9 10*3/uL (4.8-10.8)
[2018-02-16 07:20] LABS: BASOPHILS 1 % (0-1); PLATELET SUFFICIENCY NORMAL (NORMAL); POLYCHROMASIA SLIGHT; TOTAL CELLS COUNTED 100 #CELLS; TOXIC GRANULATION SLIGHT
[2018-02-16 07:31] LABS: ALBUMIN 1.9 gm/dl (3.1-4.5); POTASSIUM 4.1 mmol/L (3.5-5.1)
[2018-02-16 07:35] LABS: CREATININE 4.39 mg/dL (0.70-1.30); TOTAL PROTEIN 5.9 gm/dL (6.4-8.2)
[2018-02-16 08:00] VITALS: BP 173/82
[2018-02-16 12:00] VITALS: BP 148/70
[2018-02-16 12:52] LABS: HEMATOCRIT 24.8 % (42.0-52.0); HEMOGLOBIN 7.8 g/dl (14.0-18.0)
[2018-02-16 16:00] VITALS: BP 176/86
[2018-02-16 16:45] LABS: HEMATOCRIT 27.5 % (42.0-52.0); HEMOGLOBIN 8.7 g/dl (14.0-18.0); MEAN CELL VOLUME 88.1 fl (80.0-94.0); MEAN CORPUSCULAR HGB 27.9 pg (27.0-31.0); MEAN CORPUSCULAR HGB CONC 31.6 g/dl (33.0-37.0); MEAN PLATELET VOLUME 9.6 fl (9.6-12.3); PLATELET COUNT AUTOMATED 357 10*3/uL (130-400); RED BLOOD COUNT 3.12 10*6/uL (4.50-5.90); RED CELL DISTRI WIDTH 19.1 % (0-14.5)
[2018-02-16 17:08] LABS: BASOPHILS 1 % (0-1); PLATELET SUFFICIENCY NORMAL (NORMAL); TOTAL CELLS COUNTED 100 #CELLS; TOXIC GRANULATION SLIGHT
== END 2018-02-16 18:10 | disposition home or self-care (01) | DRG 682 ==
LOC: ED 15:24 → 4E 15:53 → EDHOLD 15:53 → 4E 15:59
PROVIDERS: Internal Medicine
PROC: 30233N1 Transfusion of Nonautologous Red Blood Cells into Peripheral Vein, Percutaneous Approach (ICD-10-PCS; principal; 2018-02-15)
DX: I12.0 Hypertensive chronic kidney disease with stage 5 chronic kidney disease or end stage renal disease (principal); N18.6 End stage renal disease; K22.10 Ulcer of esophagus without bleeding; R53.83 Other fatigue; E78.5 Hyperlipidemia, unspecified; D63.1 Anemia in chronic kidney disease; K21.9 Gastro-esophageal reflux disease without esophagitis; Z99.2 Dependence on renal dialysis; Z79.899 Other long term (current) drug therapy; Z90.79 Acquired absence of other genital organ(s); Z80.9 Family history of malignant neoplasm, unspecified

== ENCOUNTER 2018-05-29 04:03 | Inpatient (IN) | payer MEDICARE ==
[2018-05-29] VITALS (10 sets, daily range): BP systolic 127–216; BP diastolic 71–120
[~2018-05-29] VITALS: Ht 165.1 cm; Wt 50.6 kg
--- NOTE | ~2018-05-29 | EKG ---
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
[2018-05-29 04:34] LABS: BASO # 0.1 10*3/uL (0.0-0.1); BASO % 0.7 % (0.0-1.0); EOS # 0.2 10*3/uL (0.0-0.4); EOS % 1.3 % (1.0-4.0); HEMATOCRIT 40.4 % (42.0-52.0); HEMOGLOBIN 12.6 g/dl (14.0-18.0); LYMPH # 2.2 10*3/uL (1.3-4.4); LYMPH % 12.1 % (27.0-41.0); MEAN CELL VOLUME 101.3 fl (80.0-94.0); MEAN CORPUSCULAR HGB 31.6 pg (27.0-31.0); MEAN CORPUSCULAR HGB CONC 31.2 g/dl (33.0-37.0); MEAN PLATELET VOLUME 10.1 fl (9.6-12.3); MONO # 0.8 10*3/uL (0.1-1.0); MONO % 4.4 % (3.0-9.0); NEUT # 14.6 10*3/uL (2.3-7.9); NEUT % 80.8 % (47.0-73.0); PLATELET COUNT AUTOMATED 284 10*3/uL (130-400); RED BLOOD COUNT 3.99 10*6/uL (4.50-5.90); RED CELL DISTRI WIDTH 15.2 % (0-14.5); WHITE BLOOD COUNT 18.1 10*3/uL (4.8-10.8)
[2018-05-29] MEDS ORDERED: LISINOPRIL10 M1 PO (04:37)
[2018-05-29 04:43] LABS: ACT PARTIAL THROMBO TIME 25.8 SECONDS (20.8-31.5); INTERNATIONAL NORM RATIO 1.1 (2.0-3.5)
[2018-05-29 05:04] LABS: ALBUMIN 2.9 gm/dl (3.1-4.5); CREATININE 6.16 mg/dL (0.70-1.30); POTASSIUM 4.2 mmol/L (3.5-5.1); TOTAL PROTEIN 7.6 gm/dL (6.4-8.2)
[2018-05-29 05:06] LABS: TROPONIN I 0.025 ng/ml (<0.045)
--- NOTE | 2018-05-29 06:00 | NUR ---
A 68, admitted to [facility]U, under the services of MILO Moctezuma DO with a diagnosis of CHF, HTN, RESP. FAILURE. Chief complaint is SHORTNESS OF BREATH. Patient arrived via stretcher from ER. Monitor applied. Initial assessment completed. Vital signs taken and recorded. MILO MOCTEZUMA DO notified of admission to the unit. Orders received. See assessment for past medical history, medications and allergies. Patient and/or family oriented to unit. [facility] visitation policy reviewed. Clothing/patient valuable form completed. HOLLY CALDERON A
[2018-05-29] MEDS ORDERED: ESOMEPRAZOLE MA40 M1 PO (06:18)
[2018-05-29] MEDS ORDERED: LIPITOR10 MG PO (06:21)
[2018-05-29] MEDS ORDERED: COLACE100 MG PO (06:22)
[2018-05-29] MEDS ORDERED: MAGNESIUM OXID400 MG PO (06:23)
--- NOTE | 2018-05-29 06:39 | NUR ---
NEPHROLOGY ANSWERING NOTIFIED OF ROUTINE CONSULT, CALL BACK NUMBER PROVIDED.
--- NOTE | 2018-05-29 06:40 | NUR ---
SPOKE WITH DR. BOLTON REGARDING CONSULT. PATIENT CONDITION AND LABS REVIEWED. ORDERS REVIEWED.
[2018-05-29 06:59] LABS: PHOSPHOROUS 4.2 mg/dL (2.5-4.9)
--- NOTE | 2018-05-29 07:11 | NUR ---
NOTIFIED DIALYSIS THAT PATIENT NEEDS SCHEDULED FOR A ROUTINE TREATMENT AND THAT [facility] WILL PROVIDE FURTHER ORDERS.
--- NOTE | 2018-05-29 08:53 | NUR ---
Awake and alert. Spouse at bedside. Awaiting [facility] RN for RX.
--- NOTE | 2018-05-29 09:51 | NUR ---
Emesis of undigested foood. Zofran given and effective. Also medicated for c/o headache.
--- NOTE | 2018-05-29 13:04 | NUR ---
Dr. Pathak in to evaulate. Nitro to off, States headache is better. meter tester primary called in report given.
--- NOTE | 2018-05-29 19:23 | NUR ---
ASSUMED CARE FROM CIELO OSBORN. PATIENT DENIES ANY PAIN, DISCOMFORT OR SHORTNESS OF BREATHE UPON ASSESSMENT. PATIENT IS ABLE TO AMBULATE TO BSC WITH MINIMAL ASSIST. SKIN W/D/I, PATIENT REFUSES OMER HOSE AT THIS TIME. PATIENT NSR ON THE MONITOR. CALL LIGHT WITHIN REACH. SEE ASSESSMENT.
[2018-05-30] VITALS: BP 110/74
[2018-05-30 04:00] VITALS: BP 132/83
[2018-05-30 06:07] LABS: BASO # 0.1 10*3/uL (0.0-0.1); BASO % 1.2 % (0.0-1.0); EOS # 0.2 10*3/uL (0.0-0.4); EOS % 3.4 % (1.0-4.0); HEMATOCRIT 35.9 % (42.0-52.0); LYMPH # 1.7 10*3/uL (1.3-4.4); LYMPH % 33.1 % (27.0-41.0); MEAN CELL VOLUME 101.4 fl (80.0-94.0); MEAN CORPUSCULAR HGB 31.1 pg (27.0-31.0); MEAN CORPUSCULAR HGB CONC 30.6 g/dl (33.0-37.0); MEAN PLATELET VOLUME 10.4 fl (9.6-12.3); MONO # 0.5 10*3/uL (0.1-1.0); MONO % 10.5 % (3.0-9.0); NEUT # 2.6 10*3/uL (2.3-7.9); NEUT % 51.2 % (47.0-73.0); PLATELET COUNT AUTOMATED 225 10*3/uL (130-400); RED BLOOD COUNT 3.54 10*6/uL (4.50-5.90); WHITE BLOOD COUNT 5.1 10*3/uL (4.8-10.8)
[2018-05-30 06:17] LABS: ALBUMIN 2.5 gm/dl (3.1-4.5); CREATININE 4.66 mg/dL (0.70-1.30); FREE T4 1.23 ng/dl (0.76-1.46); POTASSIUM 4.3 mmol/L (3.5-5.1); TOTAL PROTEIN 6.4 gm/dL (6.4-8.2)
[2018-05-30 06:21] LABS: THYROID STIM HORMONE (HS) 1.58 uIU/ml (0.358-4.75)
[2018-05-30 07:01] LABS: VITAMIN D, 25-HYDROXY 47.1 ng/mL (30-100)
[2018-05-30 08:00] VITALS: BP 159/89
--- NOTE | 2018-05-30 08:23 | NUR ---
Awake and alert. Hemodialysis in progress. Dr. Coburn in and transfer to telemetry [facility].
--- NOTE | 2018-05-30 08:55 | NUR ---
PHYSICAL THERAPY PAtient at dialysis. Yuliya Jiménez,PT
--- NOTE | 2018-05-30 09:00 | NUR ---
Employment Adjudicator in to talk to patient. Patient states lives at home with his . There are 4 steps in the home. Physician: Dr. Agusto Fernandes [facility]: [facility] Home health services: Rehab at the [facility] currently Patient's level of ADLs: INDEPENDENT Patient has working utilities: yes DME: walker or a cane prn to steady himself Follow-up physician's appointment after d/c: will be made by the hospitalist nurse director upon discharge Does patient want to access PORTAL?: no Discharge plan discussed with patient. He lives at home with his . He is independent in his ADLs and ambulation. Discussed home health care services and he goes to the [facility] for therapy currently. He is dialysis MWF, chair time is 11am, and his transports. When medically stable he will be discharged to home with the resumption of his OP therapy at the [facility]. JORDY ARELLANO
--- NOTE | 2018-05-30 09:30 | NUR ---
Patient not available as he is in dialysis. Maegan Umana OTR/L
--- NOTE | 2018-05-30 11:05 | NUR ---
Dialysis near end. pt. tolerated well.
[2018-05-30 12:00] VITALS: BP 154/99
--- NOTE | 2018-05-30 14:11 | NUR ---
dIALYSIS COMPLETE TOOK MEAL WELL. sPOUSE IN TO VISIT. tRANsferred to [facility] via bed with belongings.
--- NOTE | 2018-05-30 14:13 | NUR ---
PHYSICAL THERAPY Patient evaluated on 5, full evaluation to follow. Continue with PT as per plan of care with fall, 02 and acute debility precautions. Will require SNF. PAtient is moderate complexity via chart review, tests and evaluation: 28969. Thank you for this referral. Yuliya Jiménez,PT
--- NOTE | 2018-05-30 14:14 | NUR ---
PHYSICAL THERAPY Patient evaluated on ICCU, full evaluation to follow. Continue with PT as per plan of care with fall and acute debility precautions. Home with family (A) and home health Rn and PT. PAtient is moderate complexity via chart review, tests and evaluation: 94348. Thank you for this referral. Yuliya Jiménez,PT
[2018-05-30 16:00] VITALS: BP 132/82
--- NOTE | 2018-05-30 17:00 | NUR ---
PATIENT RESTING AT THIS TIME WITH VISITOR PRESENT IN ROOM. NO VOICED COMPLAINTS. CALL LIGHT WITHIN REACH.
[2018-05-30 20:00] VITALS: BP 158/88
[2018-05-31] VITALS: BP 143/75
[2018-05-31 07:09] LABS: ALBUMIN 2.8 gm/dl (3.1-4.5); CREATININE 6.01 mg/dL (0.70-1.30); POTASSIUM 4.6 mmol/L (3.5-5.1)
[2018-05-31 07:21] LABS: BASO # 0.1 10*3/uL (0.0-0.1); BASO % 1.1 % (0.0-1.0); EOS # 0.2 10*3/uL (0.0-0.4); EOS % 2.4 % (1.0-4.0); HEMATOCRIT 41.4 % (42.0-52.0); LYMPH # 1.5 10*3/uL (1.3-4.4); LYMPH % 22.8 % (27.0-41.0); MEAN CELL VOLUME 99.5 fl (80.0-94.0); MEAN CORPUSCULAR HGB 32.2 pg (27.0-31.0); MEAN CORPUSCULAR HGB CONC 32.4 g/dl (33.0-37.0); MEAN PLATELET VOLUME 10.2 fl (9.6-12.3); MONO # 0.6 10*3/uL (0.1-1.0); MONO % 8.8 % (3.0-9.0); NEUT # 4.2 10*3/uL (2.3-7.9); NEUT % 64.4 % (47.0-73.0); PLATELET COUNT AUTOMATED 253 10*3/uL (130-400); RED BLOOD COUNT 4.16 10*6/uL (4.50-5.90); RED CELL DISTRI WIDTH 14.9 % (0-14.5); WHITE BLOOD COUNT 6.6 10*3/uL (4.8-10.8)
[2018-05-31 07:36] LABS: HEMOGLOBIN 13.4 g/dl (14.0-18.0)
--- NOTE | 2018-05-31 09:00 | NUR ---
Jingle Writer in to see patient. No new needs or request at this time. He denies any home needs. When medically stable he will be discharged to home with the resumption of his OP therapy.
[2018-05-31 12:00] VITALS: BP 157/85
--- NOTE | 2018-05-31 13:06 | NUR ---
DR BOLTON WAQS IN TO SEE PT. HE ADJUSTED PTS MEDICATIONS. HE ALSO ORDERED CHEST CT FOR TOMORROW AND STATED "IT IS TO BE DONE AFTER DIALYSIS AND NOT BEFORE."MESSAGE SENT TO FLOOR
--- NOTE | 2018-05-31 14:55 | NUR ---
PHYSICAL THERAPY Patient was eating lunch earlier and now resting comfortably in bed following am dialysis treatment. Patient reports feeling very exhausted at the moment and requested to remain in bed to sleep. Will continue per POC as tolerated. Haile Bullock, [employer]ANG[employer] CATCHER
[2018-05-31 16:00] VITALS: BP 128/77
[2018-05-31 20:00] VITALS: BP 146/83
--- NOTE | 2018-05-31 20:10 | NUR ---
PT RESTING COMFORTABLY. NO QUESTIONS/CONCERNS AT THIS TIME. BED LOW. CALL POLLOCK IN REACH
[2018-06-01] VITALS: BP 143/72
[2018-06-01 06:56] LABS: BASO # 0.1 10*3/uL (0.0-0.1); BASO % 0.7 % (0.0-1.0); EOS # 0.2 10*3/uL (0.0-0.4); EOS % 1.6 % (1.0-4.0); HEMOGLOBIN 13.5 g/dl (14.0-18.0); LYMPH # 1.4 10*3/uL (1.3-4.4); LYMPH % 14.1 % (27.0-41.0); MEAN CELL VOLUME 99.8 fl (80.0-94.0); MEAN CORPUSCULAR HGB 32.8 pg (27.0-31.0); MEAN CORPUSCULAR HGB CONC 32.9 g/dl (33.0-37.0); MEAN PLATELET VOLUME 9.8 fl (9.6-12.3); MONO # 0.8 10*3/uL (0.1-1.0); MONO % 7.9 % (3.0-9.0); NEUT # 7.6 10*3/uL (2.3-7.9); NEUT % 75.1 % (47.0-73.0); PLATELET COUNT AUTOMATED 235 10*3/uL (130-400); RED BLOOD COUNT 4.11 10*6/uL (4.50-5.90); WHITE BLOOD COUNT 10.2 10*3/uL (4.8-10.8)
[2018-06-01 07:18] LABS: CREATININE 4.97 mg/dL (0.70-1.30); POTASSIUM 4.2 mmol/L (3.5-5.1)
[2018-06-01 08:00] VITALS: BP 144/62
--- NOTE | 2018-06-01 08:23 | NUR ---
CALLED DR BEARD ANSWERING SERVICE REGARDING DIALYSIS TODAY. AWAITING CALL BACK
[2018-06-01 12:00] VITALS: BP 152/86
--- NOTE | 2018-06-01 12:10 | NUR ---
REPORT RECIEVED FROM DRESS FINISHER AT THIS TIME. STATES THEY TOOK OFF 2.3K AND GAVE 1 DOSE OF ALBUMIN
--- NOTE | 2018-06-01 12:30 | NUR ---
PATIENT BACK ON FLOOR FROM DIALYSIS AT THIS TIME. VITAL SIGNS STABLE. RN WILL CONTINUE TO MONITOR
--- NOTE | 2018-06-01 13:50 | NUR ---
PATIENT DONE WITH REDI-CAT AT THIS TIME.
--- NOTE | 2018-06-01 14:25 | NUR ---
PATIENT TO CT AT THIS TIME
--- NOTE | 2018-06-01 14:45 | NUR ---
PATIENT BACK ROM CT AT THIS TIME. IN STABLE CONDITION
[2018-06-01 16:00] VITALS: BP 135/90
--- NOTE | 2018-06-01 17:42 | NUR ---
PATIENT PROVIDED WITH TYLENOL FOR C/O HEADACHE AT THIS TIME. RN WILL CONTINUE TO MONITOR
--- NOTE | 2018-06-01 18:46 | NUR ---
PATIENT STATES EARLIER MEDICATION EFFECTIVE
[2018-06-01 20:00] VITALS: BP 125/74
--- NOTE | 2018-06-01 20:24 | NUR ---
ASSUMED CARE OF PATIENT. PATIENT IS RESTING IN BED WITH EASY AND REGULAR RESPERS ON ROOM AIR. ASSESSMENT IS COMPLETE WITH NO C/O OR S/S OF DISTRESS NOTED AT THIS TIME. BED IS LOW, LOCKED, AND CALL LIGHT IS WITHIN REACH. SEE SHIFT ASSESSMENT.
--- NOTE | 2018-06-01 22:26 | NUR ---
2200 MEDICATIONS GIVEN AT THIS TIME, PATIENT TOLERATED WELL. CALL LIGHT IS WITHIN REACH.
[2018-06-02] VITALS: BP 150/87
--- NOTE | 2018-06-02 10:30 | NUR ---
PT MEDICATED WITH ZOFRAN AT HIS REQUEST FOR C/O NAUSEA.
[2018-06-02 12:00] VITALS: BP 112/72
[2018-06-02] MEDS ORDERED: LISINOPRIL2.5 MG PO (12:22)
[2018-06-02] MEDS ORDERED: CARVEDILOL3.125 MG PO (12:22)
--- NOTE | 2018-06-02 13:10 | NUR ---
PT DISCHARGED AT THIS TIME WITH SPOUSE TO HOME.
--- NOTE | 2018-06-02 13:10 | NUR ---
Discharge instructions reviewed with patient/family. Patient receptive and verbalizes understanding. Follow-up care arranged. Written instructions given to patient/family. EPI MCLAUGHLIN
--- NOTE | 2018-06-02 16:07 | NUR ---
PHYSICAL THERAPY CO-SIGN I approve of the Phyical Therapy notes written above. HAO MERCHANT PT
[2018-06-03 12:06] LABS: A/G RATIO 0.9 (0.7-1.7); ALPHA-1-GLOBULIN 0.3 g/dL (0.0-0.4); ALPHA-2-GLOBULIN 0.8 g/dL (0.4-1.0); BETA GLOBULIN 0.9 g/dL (0.7-1.3); GAMMA GLOBULIN 1.6 g/dL (0.4-1.8); GLOBULIN, TOTAL 3.5 g/dL (2.2-3.9); M-SPIKE Not Observed g/dL (Not Observed); TOTAL PROTEIN, SERUM 6.5 g/dL (6.0-8.5)
[2018-07-10] MEDS ORDERED: COREG6.25 MG PO (09:07)
== END 2018-06-02 13:14 | disposition home or self-care (01) | DRG 291 ==
LOC: ED 04:03 → EDHOLD 05:19 → ICCU 05:19 → 4E 05-30 13:51
PROVIDERS: Internal Medicine; Internal Medicine Nephrology; Student in an Organized Health Care Education/Training Program; ADMIT Internal Medicine
PROC: 5A1D70Z Performance of Urinary Filtration, Intermittent, Less than 6 Hours Per Day (ICD-10-PCS; principal; 2018-05-29)
PROC: 5A1D70Z Performance of Urinary Filtration, Intermittent, Less than 6 Hours Per Day (ICD-10-PCS; 2018-05-30)
DX: I13.2 Hypertensive heart and chronic kidney disease with heart failure and with stage 5 chronic kidney disease, or end stage renal disease (principal); J96.01 Acute respiratory failure with hypoxia; N18.6 End stage renal disease; I50.23 Acute on chronic systolic (congestive) heart failure; I16.1 Hypertensive emergency; E44.0 Moderate protein-calorie malnutrition; R65.10 Systemic inflammatory response syndrome (SIRS) of non-infectious origin without acute organ dysfunction; D63.1 Anemia in chronic kidney disease; K21.9 Gastro-esophageal reflux disease without esophagitis; E87.5 Hyperkalemia; E78.5 Hyperlipidemia, unspecified; R73.9 Hyperglycemia, unspecified; I50.9 Heart failure, unspecified; Z87.891 Personal history of nicotine dependence; Z90.49 Acquired absence of other specified parts of digestive tract; Z79.891 Long term (current) use of opiate analgesic; Z68.21 Body mass index [BMI] 21.0-21.9, adult; Z99.2 Dependence on renal dialysis; D53.9 Nutritional anemia, unspecified; K81.1 Chronic cholecystitis; Z85.46 Personal history of malignant neoplasm of prostate; Z80.3 Family history of malignant neoplasm of breast; Z80.0 Family history of malignant neoplasm of digestive organs

== ENCOUNTER → 2018-07-10 | Outpatient (CLI) | payer OTHER, MEDICARE ==
[~2018-07-10] MED LIST changes: +CARVEDILOL3.125 MG PO; +COLACE100 MG PO; +COREG6.25 MG PO; +ESOMEPRAZOLE MA40 M1 PO; +LIPITOR10 MG PO; +LISINOPRIL10 M1 PO; +LISINOPRIL2.5 MG PO; +MAGNESIUM OXID400 MG PO
--- NOTE | ~2018-07-10 | ST ---
[place], [place] EXERCISE STRESS TEST REPORT NAME: LOU FRAZIER [facility] #: [id number] UNIT #: [id number] ROOM: DOCTOR: VALERIANO DE ANDA MD BIRTHDATE: [birth year] DOS: 07/10/2018 LEXISCAN STRESS EKG REFERRING PHYSICIAN: [facility] transplant, Dr. Fernandes. INDICATIONS: Preop and shortness of breath. The patient underwent standard protocol Lexiscan stress EKG. Baseline EKG is normal sinus with nonspecific ST-T wave changes. The patient had a baseline heart rate of 68 with a blood pressure of 180/80. The patient's peak heart rate was 95 with a blood pressure of 186/78. The patient had no chest pain, no EKG changes, no arrhythmias. SUMMARY OF FINDINGS: Unremarkable Lexiscan stress EKG. Please see separate report for perfusion scan imaging. VALERIANO DE ANDA MD CM:STRESS:EXERCISE STRESS TEST REPORT [id number] VALERIANO DE ANDA MD
--- NOTE | 2018-07-10 08:05 | NUR ---
INFORMED CONSENT OBTAINED FOR A LEXISCAN STRESS TEST WITH DR. DE ANDA. RESTING EKG NSR WITH A HT RT OF 68 AND BP OF 180/86. BREATH SOUNDS CLEAR BILATERAL WITH AN SPO2 OF 99% VIA RA. COMPLETED ONE MINUTE OF A LEXISCAN PROTOCOL RECEIVING LEXISCAN 0.4 MG OVER 10 SECONDS. DEVELOPED A "WEIRD" FEELING THAT WAS RELIEVED IN RECOVERY. HAD A PEAK HT RT OF 81, WITH A BP OF 172/82. LAST RECOVERY HT RT OF 98, WITH A BP OF 186/78. AWAITING NUCLEAR IMAGING IN STABLE CONDITION.
== END | disposition home or self-care (01) ==
LOC: CARD 01:59
DX: Z01.810 Encounter for preprocedural cardiovascular examination (principal); R53.81 Other malaise; R06.02 Shortness of breath

== ENCOUNTER → 2020-04-28 | Outpatient (CLI) | payer MEDICARE ==
[2020-04-28 11:00] LABS: BASO % 0.6 % (0.0-1.0); EOS # 0.1 10*3/uL (0.0-0.4); EOS % 1.9 % (1.0-4.0); HEMATOCRIT 35.1 % (42.0-52.0); LYMPH # 0.7 10*3/uL (1.3-4.4); LYMPH % 13.7 % (27.0-41.0); MEAN CELL VOLUME 89.8 fl (80.0-94.0); MEAN CORPUSCULAR HGB 29.7 pg (27.0-31.0); MEAN PLATELET VOLUME 10.6 fl (9.6-12.3); MONO # 0.5 10*3/uL (0.1-1.0); MONO % 10.2 % (3.0-9.0); NEUT # 3.9 10*3/uL (2.3-7.9); NEUT % 72.8 % (47.0-73.0); PLATELET COUNT AUTOMATED 207 10*3/uL (130-400); RED BLOOD COUNT 3.91 10*6/uL (4.50-5.90); RED CELL DISTRI WIDTH 13.2 % (0-14.5); WHITE BLOOD COUNT 5.3 10*3/uL (4.8-10.8)
[2020-04-28 11:27] LABS: ALBUMIN 3.5 gm/dl (3.1-4.5); CREATININE 1.93 mg/dL (0.70-1.30); POTASSIUM 4.1 mmol/L (3.5-5.1)
[2020-04-29 15:10] LABS: CYCLOSPORINE, BLOOD 99 ng/mL (100-400)
== END | disposition home or self-care (01) ==
LOC: LAB 10:22
PROVIDERS: Specialist; ATTEND Internal Medicine Nephrology
DX: T86.90 Unspecified complication of unspecified transplanted organ and tissue (principal); B34.9 Viral infection, unspecified; Z94.0 Kidney transplant status

== ENCOUNTER → 2020-06-25 | Outpatient (CLI) | payer MEDICARE | END | disposition home or self-care (01) | LOC: LAB 13:23 | PROVIDERS: ATTEND Nurse Practitioner Primary Care | DX: C61 Malignant neoplasm of prostate (principal) ==

== ENCOUNTER → 2020-10-05 | Outpatient (CLI) | payer MEDICARE ==
[2020-10-05 13:40] LABS: PTH INTACT 327.2 pg/mL (18.5-88.0); VITAMIN D, 25-HYDROXY 16.1 ng/mL (30-100)
== END | disposition home or self-care (01) ==
LOC: LAB 12:00
PROVIDERS: ATTEND Internal Medicine Nephrology
DX: E21.3 Hyperparathyroidism, unspecified (principal)

== ENCOUNTER → 2021-03-04 | Outpatient (CLI) | payer MEDICARE ==
[2021-03-04 11:31] LABS: BASO % 0.8 % (0.0-1.0); EOS # 0.2 10*3/uL (0.0-0.4); EOS % 4.2 % (1.0-4.0); HEMATOCRIT 39.9 % (42.0-52.0); LYMPH % 19.6 % (27.0-41.0); MEAN CELL VOLUME 92.6 fl (80.0-94.0); MEAN CORPUSCULAR HGB 30.9 pg (27.0-31.0); MEAN CORPUSCULAR HGB CONC 33.3 g/dl (33.0-37.0); MEAN PLATELET VOLUME 10.5 fl (9.6-12.3); MONO # 0.5 10*3/uL (0.1-1.0); MONO % 9.9 % (3.0-9.0); NEUT # 3.2 10*3/uL (2.3-7.9); NEUT % 64.1 % (47.0-73.0); PLATELET COUNT AUTOMATED 198 10*3/uL (130-400); RED BLOOD COUNT 4.31 10*6/uL (4.50-5.90); RED CELL DISTRI WIDTH 13.8 % (0-14.5); RETICULOCYTE % 1.82 % (0.50-2.50)
[2021-03-04 11:55] LABS: ALBUMIN 3.8 gm/dl (3.1-4.5); BUN 27 mg/dl (7-24); CHLORIDE 109 mmol/L (98-107); CHOLESTEROL 129 mg/dL (<200); CREATININE 2.14 mg/dL (0.70-1.30); GAMMA GLUTAMYL TRANSPEPTIDASE 53 U/L (15-85); POTASSIUM 4.5 mmol/L (3.5-5.1); SGOT/AST 21 IU/L (3-35); SGPT/ALT 25 U/L (12-78); SODIUM 139 mmol/L (136-145); THYROXINE (T4) TOTAL 9.8 ug/dl (4.5-12.1); TOTAL PROTEIN 7.9 gm/dL (6.4-8.2); TRIGLYCERIDES 120 mg/dl (<150)
[2021-03-04 11:56] LABS: ALKALINE PHOSPHATASE 96 U/L (45-117); IRON 76 ug/dL (65-175); LDL CHOLESTEROL 66 mg/dL (9-159); T3 UPTAKE 34 % (31-39); TOTAL IRON BINDING CAPACITY 284 ug/dl (250-450)
[2021-03-04 12:54] LABS: PTH INTACT 336.9 pg/mL (18.5-88.0); VITAMIN D, 25-HYDROXY 44.9 ng/mL (30-100)
[2021-03-04 12:56] LABS: FERRITIN 494.3 ng/mL (22.0-322.0)
[2021-03-04 17:06] LABS: BILIRUBIN Negative (Negative); BLOOD Negative (Negative); CLARITY Clear (Clear); COLOR Yellow (Yellow); GLUCOSE Negative (Negative); KETONE Trace (Negative); LEUKO ESTERASE Negative (Negative); NITRITE Negative (Negative); PH 5.5 (4.5-8.0); SPECIFIC GRAVITY 1.015 (1.001-1.030)
[2021-03-04 17:18] LABS: BACTERIA 2+; EPITHELIAL CELLS 0-2
== END | disposition home or self-care (01) ==
LOC: LAB 10:46
PROVIDERS: Family Medicine; ATTEND Internal Medicine Nephrology
DX: Z12.5 Encounter for screening for malignant neoplasm of prostate (principal); R79.89 Other specified abnormal findings of blood chemistry; R53.83 Other fatigue; E78.5 Hyperlipidemia, unspecified; E55.9 Vitamin D deficiency, unspecified; E21.3 Hyperparathyroidism, unspecified

== ENCOUNTER → 2021-06-27 | Outpatient (CLI) | payer MEDICARE | END | disposition home or self-care (01) | LOC: LAB 14:43 | PROVIDERS: ATTEND Urology | DX: N40.1 Benign prostatic hyperplasia with lower urinary tract symptoms (principal) ==

== ENCOUNTER → 2021-08-26 | Outpatient (CLI) | payer MEDICARE ==
[2021-08-26 10:54] LABS: VITAMIN D, 25-HYDROXY 48.8 ng/mL (30-100)
== END | disposition home or self-care (01) ==
LOC: LAB 07:43
PROVIDERS: ATTEND Internal Medicine Nephrology
DX: E21.3 Hyperparathyroidism, unspecified (principal)

== ENCOUNTER → 2021-10-04 | Outpatient (CLI) | payer MEDICARE ==
[2021-10-04 14:59] LABS: BASO % 0.7 % (0.0-1.0); EOS # 0.1 10*3/uL (0.0-0.4); LYMPH % 20.8 % (27.0-41.0); MEAN CELL VOLUME 92.8 fl (80.0-94.0); MEAN CORPUSCULAR HGB CONC 34.5 g/dl (33.0-37.0); MEAN PLATELET VOLUME 10.4 fl (9.6-12.3); MONO # 0.4 10*3/uL (0.1-1.0); MONO % 9.6 % (3.0-9.0); NEUT % 65.1 % (47.0-73.0); PLATELET COUNT AUTOMATED 162 10*3/uL (130-400); RED BLOOD COUNT 4.31 10*6/uL (4.50-5.90); RED CELL DISTRI WIDTH 12.7 % (0-14.5); RETICULOCYTE % 1.54 % (0.50-2.50); WHITE BLOOD COUNT 4.6 10*3/uL (4.8-10.8)
[2021-10-04 15:01] LABS: BILIRUBIN Negative (Negative); BLOOD 1+ (Negative); CLARITY Clear (Clear); COLOR Yellow (Yellow); GLUCOSE Negative (Negative); KETONE Negative (Negative); LEUKO ESTERASE Negative (Negative); NITRITE Negative (Negative); UROBILINOGEN 0.2 E.U./dl (0.0-1.0)
[2021-10-04 15:19] LABS: POTASSIUM 4.2 mmol/L (3.5-5.1); TOTAL PROTEIN 6.9 gm/dL (6.4-8.2)
[2021-10-04 15:25] LABS: CREATININE 1.77 mg/dL (0.70-1.30)
[2021-10-04 15:37] LABS: VITAMIN D, 25-HYDROXY 61.6 ng/mL (30-100)
[2021-10-04 15:38] LABS: FERRITIN 274.9 ng/mL (22.0-322.0)
[2021-10-04 16:00] LABS: RBC 31-40 rbc/hpf (0-2); WBC 0-2 wbc/hpf (0-5)
[2021-10-04 16:01] LABS: BACTERIA TRACE
== END ==
LOC: LAB 14:31
PROVIDERS: ATTEND Family Medicine
DX: E78.5 Hyperlipidemia, unspecified (principal); E55.9 Vitamin D deficiency, unspecified; R53.83 Other fatigue; R79.89 Other specified abnormal findings of blood chemistry; R74.8 Abnormal levels of other serum enzymes

== ENCOUNTER → 2021-12-08 | Outpatient (CLI) | payer MEDICARE ==
[2021-12-08 09:55] LABS: MEAN CELL VOLUME 94.9 fl (80.0-94.0); MEAN CORPUSCULAR HGB 31.9 pg (27.0-31.0); MEAN CORPUSCULAR HGB CONC 33.7 g/dl (33.0-37.0); MEAN PLATELET VOLUME 10.3 fl (9.6-12.3); PLATELET COUNT AUTOMATED 182 10*3/uL (130-400); RED BLOOD COUNT 4.32 10*6/uL (4.50-5.90); RED CELL DISTRI WIDTH 12.9 % (0-14.5); WHITE BLOOD COUNT 7.2 10*3/uL (4.8-10.8)
[2021-12-08 10:01] LABS: MANUAL DIFF REFLEX YES
[2021-12-08 10:10] LABS: CREATININE 1.87 mg/dL (0.70-1.30); POTASSIUM 3.9 mmol/L (3.5-5.1)
[2021-12-08 10:18] LABS: PLATELET SUFFICIENCY NORMAL (NORMAL); TOTAL CELLS COUNTED 100 #CELLS
[2021-12-08 11:00] LABS: VITAMIN D, 25-HYDROXY 58.1 ng/mL (30-100)
[2021-12-09 14:08] LABS: CYCLOSPORINE, BLOOD 611 ng/mL (100-400)
[2021-12-09 14:46] LABS: NOTE: A
== END | disposition home or self-care (01) ==
LOC: LAB 09:33
PROVIDERS: Specialist; ATTEND Internal Medicine Nephrology
DX: E21.3 Hyperparathyroidism, unspecified (principal); Z79.899 Other long term (current) drug therapy; Z94.0 Kidney transplant status

== ENCOUNTER → 2022-01-06 | Outpatient (CLI) | payer MEDICARE ==
[2022-01-06 10:46] LABS: BASO % 0.7 % (0.0-1.0); EOS # 0.2 10*3/uL (0.0-0.4); EOS % 2.8 % (1.0-4.0); HEMATOCRIT 43.2 % (42.0-52.0); LYMPH % 17.5 % (27.0-41.0); MEAN CELL VOLUME 97.3 fl (80.0-94.0); MEAN CORPUSCULAR HGB 32.2 pg (27.0-31.0); MEAN CORPUSCULAR HGB CONC 33.1 g/dl (33.0-37.0); MEAN PLATELET VOLUME 10.1 fl (9.6-12.3); MONO # 0.5 10*3/uL (0.1-1.0); MONO % 9.6 % (3.0-9.0); NEUT # 3.7 10*3/uL (2.3-7.9); NEUT % 67.7 % (47.0-73.0); PLATELET COUNT AUTOMATED 211 10*3/uL (130-400); RED BLOOD COUNT 4.44 10*6/uL (4.50-5.90); WHITE BLOOD COUNT 5.4 10*3/uL (4.8-10.8)
[2022-01-06 11:04] LABS: CREATININE 1.72 mg/dL (0.70-1.30); POTASSIUM 4.4 mmol/L (3.5-5.1)
[2022-01-07 10:10] LABS: CYCLOSPORINE, BLOOD 153 ng/mL (100-400)
== END | disposition home or self-care (01) ==
LOC: LAB 10:06
PROVIDERS: ATTEND Specialist
DX: E83.40 Disorders of magnesium metabolism, unspecified (principal); Z94.0 Kidney transplant status; Z79.899 Other long term (current) drug therapy

== ENCOUNTER → 2022-02-08 | Outpatient (CLI) | payer MEDICARE ==
[~2022-02-08] MED LIST changes: +CYCLOSPORINE25 M1 PO; +PREDNISONE5 MG PO; +[UNRECOGNIZED DRUG - OTHER] PO
[2022-02-08 10:09] LABS: BASO # 0.1 10*3/uL (0.0-0.1); BASO % 0.9 % (0.0-1.0); EOS # 0.1 10*3/uL (0.0-0.4); EOS % 1.8 % (1.0-4.0); HEMATOCRIT 39.6 % (42.0-52.0); LYMPH # 1.2 10*3/uL (1.3-4.4); MEAN CELL VOLUME 94.7 fl (80.0-94.0); MEAN CORPUSCULAR HGB 32.3 pg (27.0-31.0); MEAN CORPUSCULAR HGB CONC 34.1 g/dl (33.0-37.0); MEAN PLATELET VOLUME 10.4 fl (9.6-12.3); MONO # 0.5 10*3/uL (0.1-1.0); MONO % 9.5 % (3.0-9.0); NEUT # 3.7 10*3/uL (2.3-7.9); PLATELET COUNT AUTOMATED 190 10*3/uL (130-400); RED BLOOD COUNT 4.18 10*6/uL (4.50-5.90); RED CELL DISTRI WIDTH 12.4 % (0-14.5); WHITE BLOOD COUNT 5.7 10*3/uL (4.8-10.8)
[2022-02-08 10:44] LABS: CREATININE 1.68 mg/dL (0.70-1.30); POTASSIUM 3.6 mmol/L (3.5-5.1)
[2022-02-09 13:06] LABS: CYCLOSPORINE, BLOOD 188 ng/mL (100-400)
== END | disposition home or self-care (01) ==
LOC: LAB 09:34
PROVIDERS: ATTEND Specialist
DX: E83.40 Disorders of magnesium metabolism, unspecified (principal); Z79.899 Other long term (current) drug therapy; Z94.0 Kidney transplant status

== ENCOUNTER → 2022-02-20 | Outpatient (CLI) | payer MEDICARE ==
[2022-02-20 11:50] LABS: VITAMIN D, 25-HYDROXY 65.4 ng/mL (30-100)
== END | disposition home or self-care (01) ==
LOC: LAB 09:54
PROVIDERS: ATTEND Internal Medicine Nephrology
DX: E21.3 Hyperparathyroidism, unspecified (principal)

== ENCOUNTER → 2022-03-08 | Outpatient (CLI) | payer MEDICARE ==
[2022-03-08 12:11] LABS: BASO % 0.3 % (0.0-1.0); EOS % 0.3 % (1.0-4.0); HEMATOCRIT 41.1 % (42.0-52.0); LYMPH # 0.8 10*3/uL (1.3-4.4); LYMPH % 5.9 % (27.0-41.0); MEAN CELL VOLUME 93.4 fl (80.0-94.0); MEAN CORPUSCULAR HGB 32.3 pg (27.0-31.0); MEAN CORPUSCULAR HGB CONC 34.5 g/dl (33.0-37.0); MEAN PLATELET VOLUME 10.5 fl (9.6-12.3); MONO # 1.1 10*3/uL (0.1-1.0); MONO % 7.9 % (3.0-9.0); NEUT # 11.5 10*3/uL (2.3-7.9); NEUT % 84.9 % (47.0-73.0); PLATELET COUNT AUTOMATED 191 10*3/uL (130-400); RED CELL DISTRI WIDTH 12.6 % (0-14.5); WHITE BLOOD COUNT 13.6 10*3/uL (4.8-10.8)
[2022-03-08 12:43] LABS: CREATININE 1.61 mg/dL (0.70-1.30); POTASSIUM 4.2 mmol/L (3.4-5.1)
[2022-03-09 14:08] LABS: CYCLOSPORINE, BLOOD 120 ng/mL (100-400)
== END | disposition home or self-care (01) ==
LOC: LAB 11:26
PROVIDERS: ATTEND Specialist
DX: E83.40 Disorders of magnesium metabolism, unspecified (principal); Z94.0 Kidney transplant status; Z79.899 Other long term (current) drug therapy

== ENCOUNTER → 2022-05-10 | Outpatient (CLI) | payer MEDICARE ==
[2022-05-10 12:08] LABS: BASO % 0.5 % (0.0-1.0); EOS # 0.1 10*3/uL (0.0-0.4); EOS % 1.2 % (1.0-4.0); HEMATOCRIT 39.2 % (42.0-52.0); LYMPH # 0.6 10*3/uL (1.3-4.4); LYMPH % 9.8 % (27.0-41.0); MEAN CELL VOLUME 93.6 fl (80.0-94.0); MEAN CORPUSCULAR HGB 31.7 pg (27.0-31.0); MEAN CORPUSCULAR HGB CONC 33.9 g/dl (33.0-37.0); MONO # 0.4 10*3/uL (0.1-1.0); MONO % 7.4 % (3.0-9.0); NEUT # 4.6 10*3/uL (2.3-7.9); NEUT % 79.7 % (47.0-73.0); PLATELET COUNT AUTOMATED 187 10*3/uL (130-400); RED BLOOD COUNT 4.19 10*6/uL (4.50-5.90); RED CELL DISTRI WIDTH 13.1 % (0-14.5); WHITE BLOOD COUNT 5.8 10*3/uL (4.8-10.8)
[2022-05-10 12:22] LABS: POTASSIUM 4.1 mmol/L (3.4-5.1)
[2022-05-11 13:07] LABS: CYCLOSPORINE, BLOOD 171 ng/mL (100-400)
== END | disposition home or self-care (01) ==
LOC: LAB 11:45
PROVIDERS: ATTEND Specialist
DX: E83.40 Disorders of magnesium metabolism, unspecified (principal); Z79.899 Other long term (current) drug therapy; Z94.0 Kidney transplant status

== ENCOUNTER → 2022-06-09 | Outpatient (CLI) | payer MEDICARE ==
[2022-06-09 08:40] LABS: BASO % 0.6 % (0.0-1.0); EOS # 0.2 10*3/uL (0.0-0.4); EOS % 2.6 % (1.0-4.0); HEMATOCRIT 39.3 % (42.0-52.0); LYMPH # 0.9 10*3/uL (1.3-4.4); MEAN CELL VOLUME 94.2 fl (80.0-94.0); MEAN CORPUSCULAR HGB 31.9 pg (27.0-31.0); MEAN CORPUSCULAR HGB CONC 33.8 g/dl (33.0-37.0); MEAN PLATELET VOLUME 10.2 fl (9.6-12.3); MONO # 0.6 10*3/uL (0.1-1.0); MONO % 9.6 % (3.0-9.0); NEUT # 4.4 10*3/uL (2.3-7.9); NEUT % 71.1 % (47.0-73.0); PLATELET COUNT AUTOMATED 204 10*3/uL (130-400); RED BLOOD COUNT 4.17 10*6/uL (4.50-5.90); RED CELL DISTRI WIDTH 12.7 % (0-14.5); WHITE BLOOD COUNT 6.2 10*3/uL (4.8-10.8)
[2022-06-09 08:54] LABS: POTASSIUM 4.1 mmol/L (3.4-5.1)
[2022-06-10 12:07] LABS: CYCLOSPORINE, BLOOD 243 ng/mL (100-400)
== END | disposition home or self-care (01) ==
LOC: LAB 08:08
PROVIDERS: ATTEND Internal Medicine Nephrology
DX: D89.9 Disorder involving the immune mechanism, unspecified (principal); T86.90 Unspecified complication of unspecified transplanted organ and tissue; E83.40 Disorders of magnesium metabolism, unspecified; Z79.60 Long term (current) use of unspecified immunomodulators and immunosuppressants; Z94.0 Kidney transplant status

== ENCOUNTER → 2022-08-08 | Outpatient (CLI) | payer MEDICARE ==
[2022-08-08 10:54] LABS: BASO % 0.6 % (0.0-1.0); EOS # 0.1 10*3/uL (0.0-0.4); EOS % 1.9 % (1.0-4.0); HEMATOCRIT 39.4 % (42.0-52.0); LYMPH # 0.9 10*3/uL (1.3-4.4); LYMPH % 18.3 % (27.0-41.0); MEAN CELL VOLUME 94.3 fl (80.0-94.0); MEAN CORPUSCULAR HGB 31.3 pg (27.0-31.0); MEAN CORPUSCULAR HGB CONC 33.2 g/dl (33.0-37.0); MEAN PLATELET VOLUME 10.2 fl (9.6-12.3); MONO # 0.6 10*3/uL (0.1-1.0); MONO % 12.1 % (3.0-9.0); NEUT # 3.1 10*3/uL (2.3-7.9); PLATELET COUNT AUTOMATED 191 10*3/uL (130-400); RED BLOOD COUNT 4.18 10*6/uL (4.50-5.90); RED CELL DISTRI WIDTH 12.9 % (0-14.5); WHITE BLOOD COUNT 4.6 10*3/uL (4.8-10.8)
[2022-08-08 11:35] LABS: POTASSIUM 3.8 mmol/L (3.4-5.1)
== END | disposition home or self-care (01) ==
LOC: LAB 10:20
PROVIDERS: ATTEND Internal Medicine Nephrology
DX: B34.8 Other viral infections of unspecified site (principal); E83.40 Disorders of magnesium metabolism, unspecified; Z94.0 Kidney transplant status; Z79.60 Long term (current) use of unspecified immunomodulators and immunosuppressants

== ENCOUNTER → 2022-08-22 | Outpatient (CLI) | payer MEDICARE ==
[2022-08-22 09:45] LABS: BASO % 0.7 % (0.0-1.0); EOS # 0.1 10*3/uL (0.0-0.4); EOS % 2.4 % (1.0-4.0); HEMATOCRIT 38.8 % (42.0-52.0); LYMPH # 0.9 10*3/uL (1.3-4.4); LYMPH % 21.8 % (27.0-41.0); MEAN CELL VOLUME 94.6 fl (80.0-94.0); MEAN CORPUSCULAR HGB CONC 33.8 g/dl (33.0-37.0); MEAN PLATELET VOLUME 10.1 fl (9.6-12.3); MONO # 0.5 10*3/uL (0.1-1.0); MONO % 11.1 % (3.0-9.0); NEUT # 2.7 10*3/uL (2.3-7.9); NEUT % 62.8 % (47.0-73.0); PLATELET COUNT AUTOMATED 181 10*3/uL (130-400); RED CELL DISTRI WIDTH 12.9 % (0-14.5); RETICULOCYTE % 1.54 % (0.50-2.50); WHITE BLOOD COUNT 4.2 10*3/uL (4.8-10.8)
[2022-08-22 10:13] LABS: POTASSIUM 3.9 mmol/L (3.4-5.1); T3 UPTAKE 28.6 % (22.4-36.7); THYROID STIM HORMONE (HS) 1.944 uIU/ml (0.550-4.780); THYROXINE (T4) TOTAL 6.3 ug/dl (4.5-10.9); TOTAL PROTEIN 6.8 gm/dL (6.0-8.0)
[2022-08-22 13:00] LABS: BILIRUBIN Negative (Negative); BLOOD 3+ (Negative); CLARITY Clear (Clear); COLOR Yellow (Yellow); GLUCOSE Negative (Negative); KETONE Negative (Negative); LEUKO ESTERASE Negative (Negative); NITRITE Negative (Negative); SPECIFIC GRAVITY 1.015 (1.001-1.030)
[2022-08-22 13:28] LABS: BACTERIA 2+; RBC TNTC rbc/hpf (0-2)
[2022-08-23 13:07] LABS: CYCLOSPORINE, BLOOD 227 ng/mL (100-400)
== END | disposition home or self-care (01) ==
LOC: LAB 09:11
PROVIDERS: Family Medicine; Internal Medicine Nephrology; ATTEND Internal Medicine Nephrology
DX: T86.90 Unspecified complication of unspecified transplanted organ and tissue (principal); R79.89 Other specified abnormal findings of blood chemistry; R53.83 Other fatigue; E78.5 Hyperlipidemia, unspecified; R74.8 Abnormal levels of other serum enzymes; E55.9 Vitamin D deficiency, unspecified; E21.3 Hyperparathyroidism, unspecified; D89.9 Disorder involving the immune mechanism, unspecified; Z79.60 Long term (current) use of unspecified immunomodulators and immunosuppressants; Z94.0 Kidney transplant status

== ENCOUNTER → 2022-09-13 | Outpatient (CLI) | payer MEDICARE ==
[2022-09-13 09:12] LABS: BASO % 0.7 % (0.0-1.0); EOS # 0.1 10*3/uL (0.0-0.4); EOS % 2.8 % (1.0-4.0); HEMATOCRIT 40.5 % (42.0-52.0); LYMPH % 21.1 % (27.0-41.0); MEAN CELL VOLUME 95.5 fl (80.0-94.0); MEAN CORPUSCULAR HGB 31.4 pg (27.0-31.0); MEAN CORPUSCULAR HGB CONC 32.8 g/dl (33.0-37.0); MEAN PLATELET VOLUME 9.8 fl (9.6-12.3); MONO # 0.5 10*3/uL (0.1-1.0); MONO % 10.4 % (3.0-9.0); NEUT % 64.1 % (47.0-73.0); PLATELET COUNT AUTOMATED 216 10*3/uL (130-400); RED BLOOD COUNT 4.24 10*6/uL (4.50-5.90); RED CELL DISTRI WIDTH 13.1 % (0-14.5); WHITE BLOOD COUNT 4.6 10*3/uL (4.8-10.8)
[2022-09-13 09:39] LABS: POTASSIUM 4.4 mmol/L (3.4-5.1)
[2022-09-14 13:07] LABS: CYCLOSPORINE, BLOOD 215 ng/mL (100-400)
== END | disposition home or self-care (01) ==
LOC: LAB 08:48
PROVIDERS: ATTEND Internal Medicine Nephrology
DX: T86.90 Unspecified complication of unspecified transplanted organ and tissue (principal); E83.40 Disorders of magnesium metabolism, unspecified; D89.9 Disorder involving the immune mechanism, unspecified; Z79.60 Long term (current) use of unspecified immunomodulators and immunosuppressants; Z94.0 Kidney transplant status

== ENCOUNTER → 2022-12-04 | Outpatient (CLI) | payer MEDICARE ==
[2022-12-04 11:53] LABS: BILIRUBIN Negative (Negative); BLOOD 3+ (Negative); CLARITY Cloudy (Clear); COLOR Dark Yellow (Yellow); GLUCOSE Negative (Negative); HEMATOCRIT 38.3 % (42.0-52.0); KETONE Trace (Negative); LEUKO ESTERASE 3+ (Negative); MEAN CELL VOLUME 93.9 fl (80.0-94.0); MEAN CORPUSCULAR HGB 31.9 pg (27.0-31.0); MEAN CORPUSCULAR HGB CONC 33.9 g/dl (33.0-37.0); MEAN PLATELET VOLUME 9.7 fl (9.6-12.3); NITRITE Negative (Negative); PH 5.5 (4.5-8.0); PLATELET COUNT AUTOMATED 333 10*3/uL (130-400); RED BLOOD COUNT 4.08 10*6/uL (4.50-5.90); RED CELL DISTRI WIDTH 12.3 % (0-14.5); RETICULOCYTE % 0.92 % (0.50-2.50); SPECIFIC GRAVITY 1.015 (1.001-1.030); WHITE BLOOD COUNT 9.2 10*3/uL (4.8-10.8)
[2022-12-04 11:54] LABS: MANUAL DIFF REFLEX YES
[2022-12-04 12:00] LABS: BACTERIA 1+; RBC TNTC rbc/hpf (0-2); WBC TNTC wbc/hpf (0-5)
[2022-12-04 12:28] LABS: T3 UPTAKE 28.7 % (22.4-36.7); TOTAL PROTEIN 7.6 gm/dL (6.0-8.0)
[2022-12-04 12:38] LABS: OVALOCYTES FEW; POLYCHROMASIA SLIGHT; TOTAL CELLS COUNTED 100 #CELLS; TOXIC GRANULATION SLIGHT
[2022-12-04 12:39] LABS: BURR CELLS FEW; PLATELET SUFFICIENCY NORMAL (NORMAL)
[2022-12-04 19:46] LABS: VITAMIN D, 25-HYDROXY 55.9 ng/mL (30-100)
[2022-12-05 11:07] LABS: ANTI-DSDNA ANTIBODIES <1 IU/mL (0-9)
== END | disposition home or self-care (01) ==
LOC: LAB 11:12
PROVIDERS: ATTEND Family Medicine
DX: J44.9 Chronic obstructive pulmonary disease, unspecified (principal); E11.9 Type 2 diabetes mellitus without complications; E55.9 Vitamin D deficiency, unspecified; R79.89 Other specified abnormal findings of blood chemistry; R53.83 Other fatigue; R74.8 Abnormal levels of other serum enzymes

== ENCOUNTER → 2022-12-12 | Outpatient (CLI) | payer MEDICARE ==
[2022-12-12 11:50] LABS: BASO # 0.1 10*3/uL (0.0-0.1); BASO % 0.6 % (0.0-1.0); EOS # 0.1 10*3/uL (0.0-0.4); EOS % 0.9 % (1.0-4.0); HEMATOCRIT 37.5 % (42.0-52.0); LYMPH # 0.6 10*3/uL (1.3-4.4); LYMPH % 7.8 % (27.0-41.0); MEAN CELL VOLUME 94.2 fl (80.0-94.0); MEAN CORPUSCULAR HGB 31.9 pg (27.0-31.0); MEAN CORPUSCULAR HGB CONC 33.9 g/dl (33.0-37.0); MEAN PLATELET VOLUME 10.1 fl (9.6-12.3); MONO # 0.5 10*3/uL (0.1-1.0); MONO % 5.6 % (3.0-9.0); NEUT # 6.7 10*3/uL (2.3-7.9); NEUT % 83.1 % (47.0-73.0); PLATELET COUNT AUTOMATED 257 10*3/uL (130-400); RED BLOOD COUNT 3.98 10*6/uL (4.50-5.90); RED CELL DISTRI WIDTH 12.4 % (0-14.5); WHITE BLOOD COUNT 8.1 10*3/uL (4.8-10.8)
[2022-12-12 12:23] LABS: POTASSIUM 4.3 mmol/L (3.4-5.1)
[2022-12-13 15:07] LABS: CYCLOSPORINE, BLOOD 123 ng/mL (100-400)
== END | disposition home or self-care (01) ==
LOC: LAB 11:22
PROVIDERS: ATTEND Internal Medicine Nephrology
DX: D89.9 Disorder involving the immune mechanism, unspecified (principal); E83.40 Disorders of magnesium metabolism, unspecified; T86.90 Unspecified complication of unspecified transplanted organ and tissue; Z94.0 Kidney transplant status; Z79.60 Long term (current) use of unspecified immunomodulators and immunosuppressants

== ENCOUNTER → 2023-01-09 | Outpatient (CLI) | payer MEDICARE ==
[2023-01-09 11:35] LABS: BASO % 0.5 % (0.0-1.0); EOS # 0.1 10*3/uL (0.0-0.4); HEMATOCRIT 35.9 % (42.0-52.0); LYMPH # 0.6 10*3/uL (1.3-4.4); LYMPH % 7.1 % (27.0-41.0); MEAN CORPUSCULAR HGB 31.4 pg (27.0-31.0); MEAN CORPUSCULAR HGB CONC 33.4 g/dl (33.0-37.0); MEAN PLATELET VOLUME 9.8 fl (9.6-12.3); MONO # 0.5 10*3/uL (0.1-1.0); MONO % 6.5 % (3.0-9.0); NEUT # 6.4 10*3/uL (2.3-7.9); PLATELET COUNT AUTOMATED 234 10*3/uL (130-400); RED BLOOD COUNT 3.82 10*6/uL (4.50-5.90); WHITE BLOOD COUNT 7.9 10*3/uL (4.8-10.8)
[2023-01-09 12:02] LABS: POTASSIUM 4.6 mmol/L (3.4-5.1)
[2023-01-10 15:07] LABS: CYCLOSPORINE, BLOOD 116 ng/mL (100-400)
== END | disposition home or self-care (01) ==
LOC: LAB 10:53
PROVIDERS: ATTEND Internal Medicine Nephrology
DX: T86.90 Unspecified complication of unspecified transplanted organ and tissue (principal); E83.40 Disorders of magnesium metabolism, unspecified; D89.9 Disorder involving the immune mechanism, unspecified; Z79.60 Long term (current) use of unspecified immunomodulators and immunosuppressants; Z94.0 Kidney transplant status

== ENCOUNTER → 2023-01-16 | Outpatient (CLI) | payer MEDICARE | END | disposition home or self-care (01) | LOC: LAB 15:17 | PROVIDERS: ATTEND Internal Medicine Nephrology | DX: D89.9 Disorder involving the immune mechanism, unspecified (principal); E83.40 Disorders of magnesium metabolism, unspecified; Z94.0 Kidney transplant status; Z79.60 Long term (current) use of unspecified immunomodulators and immunosuppressants ==

== ENCOUNTER → 2023-01-18 | Outpatient (CLI) | payer MEDICARE | END | disposition home or self-care (01) | LOC: CARD 01:47 | PROVIDERS: ATTEND Internal Medicine Cardiovascular Disease | DX: I07.1 Rheumatic tricuspid insufficiency (principal) ==

== ENCOUNTER → 2023-02-07 | Outpatient (CLI) | payer MEDICARE ==
[2023-02-07 11:08] LABS: BASO % 0.3 % (0.0-1.0); EOS # 0.1 10*3/uL (0.0-0.4); EOS % 1.2 % (1.0-4.0); HEMATOCRIT 36.4 % (42.0-52.0); LYMPH # 0.6 10*3/uL (1.3-4.4); LYMPH % 9.5 % (27.0-41.0); MEAN CELL VOLUME 94.8 fl (80.0-94.0); MEAN CORPUSCULAR HGB 31.5 pg (27.0-31.0); MEAN CORPUSCULAR HGB CONC 33.2 g/dl (33.0-37.0); MONO # 0.4 10*3/uL (0.1-1.0); MONO % 7.3 % (3.0-9.0); NEUT # 4.8 10*3/uL (2.3-7.9); NEUT % 80.7 % (47.0-73.0); PLATELET COUNT AUTOMATED 214 10*3/uL (130-400); RED BLOOD COUNT 3.84 10*6/uL (4.50-5.90); RED CELL DISTRI WIDTH 13.5 % (0-14.5); WHITE BLOOD COUNT 5.9 10*3/uL (4.8-10.8)
[2023-02-07 11:39] LABS: POTASSIUM 4.8 mmol/L (3.4-5.1)
[2023-02-08 13:05] LABS: CYCLOSPORINE, BLOOD 163 ng/mL (100-400)
== END | disposition home or self-care (01) ==
LOC: LAB 10:39
PROVIDERS: ATTEND Internal Medicine Nephrology
DX: T86.90 Unspecified complication of unspecified transplanted organ and tissue (principal); E83.40 Disorders of magnesium metabolism, unspecified; D89.9 Disorder involving the immune mechanism, unspecified; Z79.60 Long term (current) use of unspecified immunomodulators and immunosuppressants; Z94.0 Kidney transplant status

== ENCOUNTER → 2023-02-20 | Outpatient (CLI) | payer MEDICARE ==
[2023-02-20 11:54] LABS: BASO % 0.6 % (0.0-1.0); EOS # 0.1 10*3/uL (0.0-0.4); HEMATOCRIT 34.5 % (42.0-52.0); LYMPH # 1.2 10*3/uL (1.3-4.4); LYMPH % 22.9 % (27.0-41.0); MEAN CELL VOLUME 93.5 fl (80.0-94.0); MEAN CORPUSCULAR HGB 31.4 pg (27.0-31.0); MEAN CORPUSCULAR HGB CONC 33.6 g/dl (33.0-37.0); MEAN PLATELET VOLUME 10.3 fl (9.6-12.3); MONO # 0.6 10*3/uL (0.1-1.0); MONO % 10.8 % (3.0-9.0); NEUT # 3.4 10*3/uL (2.3-7.9); NEUT % 62.6 % (47.0-73.0); PLATELET COUNT AUTOMATED 189 10*3/uL (130-400); RED BLOOD COUNT 3.69 10*6/uL (4.50-5.90); RED CELL DISTRI WIDTH 13.2 % (0-14.5); WHITE BLOOD COUNT 5.4 10*3/uL (4.8-10.8)
[2023-02-21 14:08] LABS: CYCLOSPORINE, BLOOD 150 ng/mL (100-400)
== END | disposition home or self-care (01) ==
LOC: LAB 11:30
PROVIDERS: ATTEND Internal Medicine Nephrology
DX: D89.9 Disorder involving the immune mechanism, unspecified (principal); E83.40 Disorders of magnesium metabolism, unspecified; T86.90 Unspecified complication of unspecified transplanted organ and tissue; Z79.60 Long term (current) use of unspecified immunomodulators and immunosuppressants

== ENCOUNTER → 2023-03-09 | Outpatient (CLI) | payer MEDICARE ==
[2023-03-09 11:41] LABS: BASO % 0.6 % (0.0-1.0); EOS # 0.1 10*3/uL (0.0-0.4); EOS % 1.7 % (1.0-4.0); HEMATOCRIT 34.5 % (42.0-52.0); LYMPH # 0.7 10*3/uL (1.3-4.4); LYMPH % 11.2 % (27.0-41.0); MEAN CELL VOLUME 97.5 fl (80.0-94.0); MEAN CORPUSCULAR HGB 31.6 pg (27.0-31.0); MEAN CORPUSCULAR HGB CONC 32.5 g/dl (33.0-37.0); MEAN PLATELET VOLUME 9.6 fl (9.6-12.3); MONO # 0.6 10*3/uL (0.1-1.0); MONO % 8.9 % (3.0-9.0); NEUT % 76.1 % (47.0-73.0); PLATELET COUNT AUTOMATED 182 10*3/uL (130-400); RED BLOOD COUNT 3.54 10*6/uL (4.50-5.90); RED CELL DISTRI WIDTH 13.4 % (0-14.5); WHITE BLOOD COUNT 6.5 10*3/uL (4.8-10.8)
[2023-03-09 12:06] LABS: POTASSIUM 4.7 mmol/L (3.4-5.1)
[2023-03-10 11:07] LABS: CYCLOSPORINE, BLOOD 137 ng/mL (100-400)
== END | disposition home or self-care (01) ==
LOC: LAB 11:11
PROVIDERS: ATTEND Internal Medicine Nephrology
DX: T86.90 Unspecified complication of unspecified transplanted organ and tissue (principal); E83.40 Disorders of magnesium metabolism, unspecified; D89.9 Disorder involving the immune mechanism, unspecified; Z94.0 Kidney transplant status; Z79.60 Long term (current) use of unspecified immunomodulators and immunosuppressants; Y82.8 Other medical devices associated with adverse incidents; Y92.89 Other specified places as the place of occurrence of the external cause

== ENCOUNTER → 2023-04-13 | Outpatient (CLI) | payer MEDICARE ==
[2023-04-13 10:37] LABS: BASO % 0.5 % (0.0-1.0); EOS % 0.6 % (1.0-4.0); HEMATOCRIT 40.6 % (42.0-52.0); LYMPH # 0.9 10*3/uL (1.3-4.4); LYMPH % 13.7 % (27.0-41.0); MEAN CORPUSCULAR HGB CONC 32.3 g/dl (33.0-37.0); MEAN PLATELET VOLUME 9.9 fl (9.6-12.3); MONO # 0.3 10*3/uL (0.1-1.0); MONO % 4.4 % (3.0-9.0); NEUT # 4.9 10*3/uL (2.3-7.9); NEUT % 79.2 % (47.0-73.0); PLATELET COUNT AUTOMATED 201 10*3/uL (130-400); RED BLOOD COUNT 4.23 10*6/uL (4.50-5.90); RED CELL DISTRI WIDTH 13.1 % (0-14.5); WHITE BLOOD COUNT 6.2 10*3/uL (4.8-10.8)
[2023-04-13 11:04] LABS: POTASSIUM 4.9 mmol/L (3.4-5.1)
[2023-04-14 15:06] LABS: CYCLOSPORINE, BLOOD 138 ng/mL (100-400)
== END | disposition home or self-care (01) ==
LOC: LAB 10:14
PROVIDERS: ATTEND Internal Medicine Nephrology
DX: T86.90 Unspecified complication of unspecified transplanted organ and tissue (principal); E83.40 Disorders of magnesium metabolism, unspecified; Z94.0 Kidney transplant status; D89.9 Disorder involving the immune mechanism, unspecified; Z79.60 Long term (current) use of unspecified immunomodulators and immunosuppressants; Y84.9 Medical procedure, unspecified as the cause of abnormal reaction of the patient, or of later complication, without mention of misadventure at the time of the procedure

== ENCOUNTER → 2023-06-14 | Outpatient (CLI) | payer MEDICARE ==
[2023-06-14 11:37] LABS: BASO % 0.7 % (0.0-1.0); EOS % 0.7 % (1.0-4.0); HEMATOCRIT 39.1 % (42.0-52.0); LYMPH # 0.6 10*3/uL (1.3-4.4); LYMPH % 10.5 % (27.0-41.0); MEAN CELL VOLUME 94.7 fl (80.0-94.0); MEAN CORPUSCULAR HGB 31.7 pg (27.0-31.0); MEAN CORPUSCULAR HGB CONC 33.5 g/dl (33.0-37.0); MEAN PLATELET VOLUME 10.2 fl (9.6-12.3); MONO # 0.4 10*3/uL (0.1-1.0); MONO % 5.9 % (3.0-9.0); NEUT # 4.8 10*3/uL (2.3-7.9); NEUT % 80.7 % (47.0-73.0); PLATELET COUNT AUTOMATED 186 10*3/uL (130-400); RED BLOOD COUNT 4.13 10*6/uL (4.50-5.90); RED CELL DISTRI WIDTH 12.9 % (0-14.5); RETICULOCYTE % 1.59 % (0.50-2.50)
[2023-06-14 11:46] LABS: BILIRUBIN Negative (Negative); BLOOD Trace-Intact (Negative); CLARITY Clear (Clear); COLOR Yellow (Yellow); GLUCOSE Negative (Negative); KETONE Negative (Negative); LEUKO ESTERASE Negative (Negative); NITRITE Negative (Negative); PH 6.5 (4.5-8.0); UROBILINOGEN 0.2 E.U./dl (0.0-1.0)
[2023-06-14 12:01] LABS: T3 UPTAKE 29.3 % (22.4-36.7); THYROXINE (T4) TOTAL 7.4 ug/dl (4.5-10.9); TOTAL PROTEIN 7.5 gm/dL (6.0-8.0)
[2023-06-14 12:05] LABS: EPITHELIAL CELLS 0-2
[2023-06-14 12:39] LABS: VITAMIN D, 25-HYDROXY 54.1 ng/mL (30-100)
[2023-06-15 16:08] LABS: CYCLOSPORINE, BLOOD 117 ng/mL (100-400)
== END | disposition home or self-care (01) ==
LOC: LAB 11:05
PROVIDERS: Family Medicine; ATTEND Physician Assistant
DX: Z12.5 Encounter for screening for malignant neoplasm of prostate (principal); B34.8 Other viral infections of unspecified site; D89.9 Disorder involving the immune mechanism, unspecified; Z94.0 Kidney transplant status; E55.9 Vitamin D deficiency, unspecified; R79.89 Other specified abnormal findings of blood chemistry; R53.83 Other fatigue; E78.5 Hyperlipidemia, unspecified

== ENCOUNTER → 2023-07-20 | Outpatient (CLI) | payer MEDICARE ==
[2023-07-20 11:30] LABS: HEMATOCRIT 39.7 % (42.0-52.0); MEAN CELL VOLUME 97.1 fl (80.0-94.0); MEAN PLATELET VOLUME 10.1 fl (9.6-12.3); PLATELET COUNT AUTOMATED 202 10*3/uL (130-400); RED BLOOD COUNT 4.09 10*6/uL (4.50-5.90); RED CELL DISTRI WIDTH 13.2 % (0-14.5); WHITE BLOOD COUNT 8.1 10*3/uL (4.8-10.8)
[2023-07-20 11:53] LABS: MANUAL DIFF REFLEX YES
[2023-07-20 11:56] LABS: POTASSIUM 4.4 mmol/L (3.4-5.1)
[2023-07-20 12:01] LABS: PLATELET SUFFICIENCY NORMAL (NORMAL); TOTAL CELLS COUNTED 100 #CELLS
[2023-07-23 15:06] LABS: CYCLOSPORINE, BLOOD 109 ng/mL (100-400)
== END | disposition home or self-care (01) ==
LOC: LAB 10:50
PROVIDERS: ATTEND Physician Assistant
DX: D89.9 Disorder involving the immune mechanism, unspecified (principal); B34.8 Other viral infections of unspecified site; Z94.0 Kidney transplant status

== ENCOUNTER → 2023-08-10 | Outpatient (CLI) | payer MEDICARE ==
[2023-08-10 10:29] LABS: BASO % 0.4 % (0.0-1.0); EOS # 0.1 10*3/uL (0.0-0.4); EOS % 1.9 % (1.0-4.0); HEMATOCRIT 41.1 % (42.0-52.0); LYMPH # 0.9 10*3/uL (1.3-4.4); LYMPH % 13.5 % (27.0-41.0); MEAN CELL VOLUME 97.2 fl (80.0-94.0); MEAN CORPUSCULAR HGB 32.4 pg (27.0-31.0); MEAN CORPUSCULAR HGB CONC 33.3 g/dl (33.0-37.0); MEAN PLATELET VOLUME 10.3 fl (9.6-12.3); MONO # 0.5 10*3/uL (0.1-1.0); MONO % 7.1 % (3.0-9.0); NEUT # 5.1 10*3/uL (2.3-7.9); NEUT % 76.1 % (47.0-73.0); PLATELET COUNT AUTOMATED 210 10*3/uL (130-400); RED BLOOD COUNT 4.23 10*6/uL (4.50-5.90); RED CELL DISTRI WIDTH 13.4 % (0-14.5); WHITE BLOOD COUNT 6.8 10*3/uL (4.8-10.8)
[2023-08-10 10:49] LABS: POTASSIUM 4.3 mmol/L (3.4-5.1)
[2023-08-13 15:30] LABS: CYCLOSPORINE, BLOOD 136 ng/mL (100-400)
== END ==
LOC: LAB 09:42
PROVIDERS: ATTEND Student in an Organized Health Care Education/Training Program
DX: D89.9 Disorder involving the immune mechanism, unspecified (principal); Z94.0 Kidney transplant status; B34.8 Other viral infections of unspecified site

== ENCOUNTER → 2023-08-24 | Outpatient (CLI) | payer MEDICARE ==
[2023-08-24 12:01] LABS: VITAMIN D, 25-HYDROXY 50.5 ng/mL (30-100)
== END | disposition home or self-care (01) ==
LOC: LAB 10:23
PROVIDERS: ATTEND Family Medicine
DX: N25.81 Secondary hyperparathyroidism of renal origin (principal); D63.1 Anemia in chronic kidney disease; N18.9 Chronic kidney disease, unspecified

== ENCOUNTER → 2023-09-13 | Outpatient (CLI) | payer MEDICARE ==
[2023-09-13 10:53] LABS: BASO # 0.1 10*3/uL (0.0-0.1); BASO % 0.7 % (0.0-1.0); EOS # 0.2 10*3/uL (0.0-0.4); EOS % 2.1 % (1.0-4.0); HEMATOCRIT 42.8 % (42.0-52.0); LYMPH # 0.9 10*3/uL (1.3-4.4); LYMPH % 13.2 % (27.0-41.0); MEAN CELL VOLUME 98.4 fl (80.0-94.0); MEAN CORPUSCULAR HGB 32.2 pg (27.0-31.0); MEAN CORPUSCULAR HGB CONC 32.7 g/dl (33.0-37.0); MONO # 0.5 10*3/uL (0.1-1.0); MONO % 7.2 % (3.0-9.0); NEUT # 5.3 10*3/uL (2.3-7.9); NEUT % 75.1 % (47.0-73.0); PLATELET COUNT AUTOMATED 194 10*3/uL (130-400); RED BLOOD COUNT 4.35 10*6/uL (4.50-5.90); RED CELL DISTRI WIDTH 12.9 % (0-14.5); WHITE BLOOD COUNT 7.1 10*3/uL (4.8-10.8)
[2023-09-13 11:16] LABS: POTASSIUM 4.9 mmol/L (3.4-5.1)
[2023-09-14 14:09] LABS: CYCLOSPORINE, BLOOD 122 ng/mL (100-400)
== END | disposition home or self-care (01) ==
LOC: LAB 10:21
PROVIDERS: ATTEND Student in an Organized Health Care Education/Training Program
DX: D89.9 Disorder involving the immune mechanism, unspecified (principal); B34.8 Other viral infections of unspecified site

== ENCOUNTER → 2023-10-09 | Outpatient (CLI) | payer MEDICARE ==
[2023-10-09 12:12] LABS: BASO % 0.6 % (0.0-1.0); EOS # 0.1 10*3/uL (0.0-0.4); EOS % 1.9 % (1.0-4.0); HEMATOCRIT 35.4 % (42.0-52.0); LYMPH # 1.5 10*3/uL (1.3-4.4); LYMPH % 24.5 % (27.0-41.0); MEAN CELL VOLUME 94.1 fl (80.0-94.0); MEAN PLATELET VOLUME 10.2 fl (9.6-12.3); MONO # 0.6 10*3/uL (0.1-1.0); MONO % 9.6 % (3.0-9.0); NEUT # 3.9 10*3/uL (2.3-7.9); NEUT % 61.8 % (47.0-73.0); PLATELET COUNT AUTOMATED 173 10*3/uL (130-400); RED BLOOD COUNT 3.76 10*6/uL (4.50-5.90); RED CELL DISTRI WIDTH 12.6 % (0-14.5); WHITE BLOOD COUNT 6.2 10*3/uL (4.8-10.8)
[2023-10-09 12:34] LABS: POTASSIUM 3.9 mmol/L (3.4-5.1)
[2023-10-10 16:09] LABS: CYCLOSPORINE, BLOOD 133 ng/mL (100-400)
== END | disposition home or self-care (01) ==
LOC: LAB 11:47
PROVIDERS: ATTEND Student in an Organized Health Care Education/Training Program
DX: D89.9 Disorder involving the immune mechanism, unspecified (principal); B34.8 Other viral infections of unspecified site; Z94.0 Kidney transplant status

== ENCOUNTER → 2023-11-14 | Outpatient (CLI) | payer MEDICARE ==
[2023-11-14 11:32] LABS: BASO % 0.6 % (0.0-1.0); EOS # 0.1 10*3/uL (0.0-0.4); HEMATOCRIT 39.1 % (42.0-52.0); LYMPH # 0.6 10*3/uL (1.3-4.4); LYMPH % 9.9 % (27.0-41.0); MEAN CELL VOLUME 95.8 fl (80.0-94.0); MEAN CORPUSCULAR HGB 31.9 pg (27.0-31.0); MEAN CORPUSCULAR HGB CONC 33.2 g/dl (33.0-37.0); MEAN PLATELET VOLUME 10.2 fl (9.6-12.3); MONO # 0.6 10*3/uL (0.1-1.0); MONO % 8.8 % (3.0-9.0); NEUT # 4.9 10*3/uL (2.3-7.9); NEUT % 76.3 % (47.0-73.0); PLATELET COUNT AUTOMATED 199 10*3/uL (130-400); RED BLOOD COUNT 4.08 10*6/uL (4.50-5.90); RED CELL DISTRI WIDTH 12.4 % (0-14.5); WHITE BLOOD COUNT 6.4 10*3/uL (4.8-10.8)
[2023-11-14 11:55] LABS: POTASSIUM 4.4 mmol/L (3.4-5.1)
[2023-11-15 13:07] LABS: CYCLOSPORINE, BLOOD 116 ng/mL (100-400)
== END | disposition home or self-care (01) ==
LOC: LAB 11:09
PROVIDERS: ATTEND Physician Assistant
DX: D80.9 Immunodeficiency with predominantly antibody defects, unspecified (principal); B34.8 Other viral infections of unspecified site; Z94.0 Kidney transplant status

== ENCOUNTER → 2023-12-27 | Outpatient (CLI) | payer MEDICARE ==
[2023-12-27 11:15] LABS: BASO % 0.5 % (0.0-1.0); EOS # 0.1 10*3/uL (0.0-0.4); EOS % 0.8 % (1.0-4.0); LYMPH # 0.6 10*3/uL (1.3-4.4); LYMPH % 8.3 % (27.0-41.0); MEAN CELL VOLUME 95.5 fl (80.0-94.0); MEAN CORPUSCULAR HGB 32.1 pg (27.0-31.0); MEAN CORPUSCULAR HGB CONC 33.6 g/dl (33.0-37.0); MEAN PLATELET VOLUME 10.6 fl (9.6-12.3); MONO # 0.5 10*3/uL (0.1-1.0); MONO % 6.5 % (3.0-9.0); NEUT # 6.3 10*3/uL (2.3-7.9); NEUT % 81.7 % (47.0-73.0); PLATELET COUNT AUTOMATED 203 10*3/uL (130-400); RED BLOOD COUNT 3.77 10*6/uL (4.50-5.90); RED CELL DISTRI WIDTH 12.5 % (0-14.5); WHITE BLOOD COUNT 7.7 10*3/uL (4.8-10.8)
[2023-12-27 12:01] LABS: POTASSIUM 4.2 mmol/L (3.4-5.1)
== END | disposition home or self-care (01) ==
LOC: LAB 10:38
PROVIDERS: ATTEND Student in an Organized Health Care Education/Training Program
DX: D89.9 Disorder involving the immune mechanism, unspecified (principal); Z94.0 Kidney transplant status; B34.8 Other viral infections of unspecified site

== ENCOUNTER → 2024-02-05 | Outpatient (CLI) | payer MEDICARE ==
[2024-02-05 08:47] LABS: BASO % 0.3 % (0.0-1.0); EOS # 0.1 10*3/uL (0.0-0.4); EOS % 2.3 % (1.0-4.0); HEMATOCRIT 29.8 % (42.0-52.0); MEAN CELL VOLUME 95.2 fl (80.0-94.0); MEAN CORPUSCULAR HGB 32.3 pg (27.0-31.0); MEAN CORPUSCULAR HGB CONC 33.9 g/dl (33.0-37.0); MEAN PLATELET VOLUME 10.1 fl (9.6-12.3); MONO # 0.3 10*3/uL (0.1-1.0); MONO % 8.9 % (3.0-9.0); NEUT # 2.1 10*3/uL (2.3-7.9); NEUT % 60.8 % (47.0-73.0); PLATELET COUNT AUTOMATED 163 10*3/uL (130-400); RED BLOOD COUNT 3.13 10*6/uL (4.50-5.90); RED CELL DISTRI WIDTH 12.5 % (0-14.5); WHITE BLOOD COUNT 3.5 10*3/uL (4.8-10.8)
[2024-02-05 09:28] LABS: POTASSIUM 3.9 mmol/L (3.4-5.1)
[2024-02-06 17:05] LABS: CYCLOSPORINE, BLOOD 185 ng/mL (100-400)
== END | disposition home or self-care (01) ==
LOC: LAB 07:57
PROVIDERS: ATTEND Student in an Organized Health Care Education/Training Program
DX: D89.9 Disorder involving the immune mechanism, unspecified (principal); E83.40 Disorders of magnesium metabolism, unspecified; T86.90 Unspecified complication of unspecified transplanted organ and tissue; Z79.60 Long term (current) use of unspecified immunomodulators and immunosuppressants; Z94.0 Kidney transplant status

== ENCOUNTER → 2024-03-14 | Outpatient (CLI) | payer MEDICARE ==
[2024-03-14 09:45] LABS: HEMATOCRIT 28.8 % (42.0-52.0); MEAN CELL VOLUME 102.1 fl (80.0-94.0); MEAN CORPUSCULAR HGB CONC 33.3 g/dl (33.0-37.0); MEAN PLATELET VOLUME 10.8 fl (9.6-12.3); PLATELET COUNT AUTOMATED 141 10*3/uL (130-400); RED BLOOD COUNT 2.82 10*6/uL (4.50-5.90); RED CELL DISTRI WIDTH 17.8 % (0-14.5)
[2024-03-14 09:55] LABS: MANUAL DIFF REFLEX YES
[2024-03-14 10:24] LABS: POTASSIUM 3.9 mmol/L (3.4-5.1)
[2024-03-14 11:14] LABS: TOTAL CELLS COUNTED 100 #CELLS
[2024-03-14 11:15] LABS: PLATELET SUFFICIENCY NORMAL (NORMAL)
[2024-03-14 11:16] LABS: POLYCHROMASIA SLIGHT
[2024-03-15 10:06] LABS: CYCLOSPORINE, BLOOD 195 ng/mL (100-400)
== END | disposition home or self-care (01) ==
LOC: LAB 08:54
PROVIDERS: Internal Medicine Nephrology; ATTEND Student in an Organized Health Care Education/Training Program
DX: T86.90 Unspecified complication of unspecified transplanted organ and tissue (principal); E83.40 Disorders of magnesium metabolism, unspecified; D89.9 Disorder involving the immune mechanism, unspecified; Z94.0 Kidney transplant status; Z79.60 Long term (current) use of unspecified immunomodulators and immunosuppressants; Y82.8 Other medical devices associated with adverse incidents

== ENCOUNTER → 2024-06-18 | Outpatient (CLI) | payer MEDICARE ==
[2024-06-18 08:53] LABS: BASO % 0.4 % (0.0-1.0); EOS # 0.1 10*3/uL (0.0-0.4); EOS % 2.3 % (1.0-4.0); HEMATOCRIT 33.8 % (42.0-52.0); MEAN CELL VOLUME 96.8 fl (80.0-94.0); MEAN CORPUSCULAR HGB 33.8 pg (27.0-31.0); MEAN CORPUSCULAR HGB CONC 34.9 g/dl (33.0-37.0); MEAN PLATELET VOLUME 10.1 fl (9.6-12.3); MONO # 0.6 10*3/uL (0.1-1.0); MONO % 11.7 % (3.0-9.0); NEUT # 2.6 10*3/uL (2.3-7.9); NEUT % 54.3 % (47.0-73.0); PLATELET COUNT AUTOMATED 197 10*3/uL (130-400); RED BLOOD COUNT 3.49 10*6/uL (4.50-5.90); RED CELL DISTRI WIDTH 12.4 % (0-14.5); WHITE BLOOD COUNT 4.8 10*3/uL (4.8-10.8)
[2024-06-18 09:21] LABS: POTASSIUM 3.4 mmol/L (3.4-5.1)
[2024-06-19 15:04] LABS: CYCLOSPORINE, BLOOD 105 ng/mL (100-400)
== END | disposition home or self-care (01) ==
LOC: LAB 08:27
PROVIDERS: ATTEND Student in an Organized Health Care Education/Training Program
DX: E83.40 Disorders of magnesium metabolism, unspecified (principal); T86.90 Unspecified complication of unspecified transplanted organ and tissue; D89.9 Disorder involving the immune mechanism, unspecified; Z79.60 Long term (current) use of unspecified immunomodulators and immunosuppressants; Z94.0 Kidney transplant status; Y83.8 Other surgical procedures as the cause of abnormal reaction of the patient, or of later complication, without mention of misadventure at the time of the procedure; Y92.89 Other specified places as the place of occurrence of the external cause

== ENCOUNTER → 2024-06-23 | Outpatient (CLI) | payer MEDICARE | END | disposition home or self-care (01) | LOC: CT 03:09 | PROVIDERS: ATTEND Specialist | DX: J90 Pleural effusion, not elsewhere classified (principal); J43.9 Emphysema, unspecified; J84.9 Interstitial pulmonary disease, unspecified; J84.10 Pulmonary fibrosis, unspecified; R91.1 Solitary pulmonary nodule; I25.10 Atherosclerotic heart disease of native coronary artery without angina pectoris ==

== ENCOUNTER → 2024-07-17 | Outpatient (CLI) | payer MEDICARE ==
[2024-07-17 09:14] LABS: BASO % 0.3 % (0.0-1.0); EOS # 0.1 10*3/uL (0.0-0.4); EOS % 3.2 % (1.0-4.0); HEMATOCRIT 34.7 % (42.0-52.0); MEAN CORPUSCULAR HGB 33.1 pg (27.0-31.0); MEAN CORPUSCULAR HGB CONC 33.7 g/dl (33.0-37.0); MEAN PLATELET VOLUME 9.8 fl (9.6-12.3); MONO # 0.3 10*3/uL (0.1-1.0); MONO % 7.8 % (3.0-9.0); NEUT # 2.4 10*3/uL (2.3-7.9); PLATELET COUNT AUTOMATED 123 10*3/uL (130-400); RED BLOOD COUNT 3.54 10*6/uL (4.50-5.90); RED CELL DISTRI WIDTH 12.1 % (0-14.5); WHITE BLOOD COUNT 3.7 10*3/uL (4.8-10.8)
[2024-07-17 09:46] LABS: POTASSIUM 4.1 mmol/L (3.4-5.1)
== END | disposition home or self-care (01) ==
LOC: LAB 08:56
PROVIDERS: ATTEND Internal Medicine Cardiovascular Disease
DX: D89.9 Disorder involving the immune mechanism, unspecified (principal); E83.40 Disorders of magnesium metabolism, unspecified; T86.90 Unspecified complication of unspecified transplanted organ and tissue; Z94.0 Kidney transplant status; Z79.60 Long term (current) use of unspecified immunomodulators and immunosuppressants

== ENCOUNTER → 2024-08-12 | Outpatient (CLI) | payer MEDICARE ==
[2024-08-12 09:27] LABS: BASO % 0.4 % (0.0-1.0); EOS # 0.1 10*3/uL (0.0-0.4); EOS % 0.9 % (1.0-4.0); HEMATOCRIT 31.4 % (42.0-52.0); MEAN CELL VOLUME 96.6 fl (80.0-94.0); MEAN CORPUSCULAR HGB 33.2 pg (27.0-31.0); MEAN CORPUSCULAR HGB CONC 34.4 g/dl (33.0-37.0); MEAN PLATELET VOLUME 9.5 fl (9.6-12.3); MONO # 0.5 10*3/uL (0.1-1.0); MONO % 9.8 % (3.0-9.0); NEUT # 3.4 10*3/uL (2.3-7.9); NEUT % 62.3 % (47.0-73.0); PLATELET COUNT AUTOMATED 187 10*3/uL (130-400); RED BLOOD COUNT 3.25 10*6/uL (4.50-5.90); RED CELL DISTRI WIDTH 13.5 % (0-14.5); WHITE BLOOD COUNT 5.5 10*3/uL (4.8-10.8)
== END | disposition home or self-care (01) ==
LOC: LAB 08:51
PROVIDERS: ATTEND Student in an Organized Health Care Education/Training Program
DX: E83.40 Disorders of magnesium metabolism, unspecified (principal); D89.9 Disorder involving the immune mechanism, unspecified; T86.90 Unspecified complication of unspecified transplanted organ and tissue; Z79.60 Long term (current) use of unspecified immunomodulators and immunosuppressants; Z94.0 Kidney transplant status

== ENCOUNTER → 2024-09-10 | Outpatient (CLI) | payer MEDICARE ==
[2024-09-10 08:59] LABS: BASO % 0.5 % (0.0-1.0); EOS # 0.2 10*3/uL (0.0-0.4); EOS % 2.7 % (1.0-4.0); HEMATOCRIT 33.6 % (42.0-52.0); MEAN CORPUSCULAR HGB 32.7 pg (27.0-31.0); MEAN CORPUSCULAR HGB CONC 32.7 g/dl (33.0-37.0); MEAN PLATELET VOLUME 9.9 fl (9.6-12.3); MONO # 0.6 10*3/uL (0.1-1.0); MONO % 9.5 % (3.0-9.0); NEUT # 3.6 10*3/uL (2.3-7.9); NEUT % 60.4 % (47.0-73.0); PLATELET COUNT AUTOMATED 182 10*3/uL (130-400); RED BLOOD COUNT 3.36 10*6/uL (4.50-5.90); RED CELL DISTRI WIDTH 13.6 % (0-14.5)
[2024-09-10 09:28] LABS: POTASSIUM 3.8 mmol/L (3.4-5.1)
== END | disposition home or self-care (01) ==
LOC: LAB 08:19
PROVIDERS: ATTEND Student in an Organized Health Care Education/Training Program
DX: E83.40 Disorders of magnesium metabolism, unspecified (principal); D89.9 Disorder involving the immune mechanism, unspecified; T86.90 Unspecified complication of unspecified transplanted organ and tissue; Z94.0 Kidney transplant status; Z79.60 Long term (current) use of unspecified immunomodulators and immunosuppressants; Y82.9 Unspecified medical devices associated with adverse incidents

== ENCOUNTER → 2024-09-23 | Outpatient (CLI) | payer MEDICARE ==
[2024-09-23 09:08] LABS: BASO # 0.0 10*3/uL (0.0-0.1); BASO % 0.7 % (0.0-1.0); EOS # 0.1 10*3/uL (0.0-0.4); EOS % 2.4 % (1.0-4.0); MEAN CELL VOLUME 98.6 fl (80.0-94.0); MEAN CORPUSCULAR HGB 32.9 pg (27.0-31.0); MEAN PLATELET VOLUME 10.1 fl (9.6-12.3); MONO # 0.5 10*3/uL (0.1-1.0); MONO % 9.2 % (3.0-9.0); NEUT # 3.7 10*3/uL (2.3-7.9); NEUT % 63.6 % (47.0-73.0); NUCLEATED RED BLOOD CELL 0.0 % (0.0-0.0); NUCLEATED RED BLOOD CELL 0.0 10*3/uL (0.0-0.0); PLATELET COUNT AUTOMATED 180 10*3/uL (130-400); RED CELL DISTRI WIDTH 13.3 % (0-14.5)
[2024-09-23 09:51] LABS: BUN 19.0 mg/dl (9-23); SGPT/ALT 12.0 U/L (5-49); VITAMIN D, 25-HYDROXY 50.6 ng/mL (30-100)
== END | disposition home or self-care (01) ==
LOC: LAB 08:46
PROVIDERS: ATTEND Internal Medicine Nephrology
DX: N25.81 Secondary hyperparathyroidism of renal origin (principal); D63.1 Anemia in chronic kidney disease; Z94.0 Kidney transplant status

== ENCOUNTER → 2024-10-07 | Outpatient (CLI) | payer MEDICARE ==
[2024-10-07 09:37] LABS: BASO # 0.0 10*3/uL (0.0-0.1); BASO % 0.6 % (0.0-1.0); EOS # 0.1 10*3/uL (0.0-0.4); EOS % 2.8 % (1.0-4.0); MEAN CELL VOLUME 99.1 fl (80.0-94.0); MEAN CORPUSCULAR HGB 33.4 pg (27.0-31.0); MEAN PLATELET VOLUME 10.0 fl (9.6-12.3); MONO # 0.6 10*3/uL (0.1-1.0); MONO % 11.8 % (3.0-9.0); NEUT # 2.7 10*3/uL (2.3-7.9); NEUT % 58.0 % (47.0-73.0); NUCLEATED RED BLOOD CELL 0.0 % (0.0-0.0); NUCLEATED RED BLOOD CELL 0.0 10*3/uL (0.0-0.0); PLATELET COUNT AUTOMATED 178 10*3/uL (130-400); RED CELL DISTRI WIDTH 13.1 % (0-14.5)
[2024-10-07 10:15] LABS: BUN 17.0 mg/dl (9-23)
== END | disposition home or self-care (01) ==
LOC: LAB 08:51
PROVIDERS: ATTEND Student in an Organized Health Care Education/Training Program
DX: T86.90 Unspecified complication of unspecified transplanted organ and tissue (principal); D89.9 Disorder involving the immune mechanism, unspecified; Z94.0 Kidney transplant status; Z79.60 Long term (current) use of unspecified immunomodulators and immunosuppressants; Y84.8 Other medical procedures as the cause of abnormal reaction of the patient, or of later complication, without mention of misadventure at the time of the procedure; Y92.89 Other specified places as the place of occurrence of the external cause

== ENCOUNTER → 2024-10-17 | Outpatient (CLI) | payer MEDICARE | LOC: LAB 07:25 | PROVIDERS: ATTEND Urology | DX: R30.0 Dysuria (principal) ==

== ENCOUNTER → 2024-10-21 | Outpatient (CLI) | payer MEDICARE ==
[2024-10-21 09:32] LABS: MEAN CELL VOLUME 98.6 fl (80.0-94.0); MEAN CORPUSCULAR HGB 32.8 pg (27.0-31.0); MEAN PLATELET VOLUME 10.9 fl (9.6-12.3); NUCLEATED RED BLOOD CELL 0.0 % (0.0-0.0); NUCLEATED RED BLOOD CELL 0.0 10*3/uL (0.0-0.0); PLATELET COUNT AUTOMATED 121 10*3/uL (130-400); RED CELL DISTRI WIDTH 12.1 % (0-14.5)
[2024-10-21 09:37] LABS: MANUAL DIFF REFLEX YES
[2024-10-21 09:55] LABS: BUN 16.0 mg/dl (9-23)
[2024-10-21 09:56] LABS: PLATELET SUFFICIENCY LOW (NORMAL)
== END | disposition home or self-care (01) ==
LOC: LAB 09:15
PROVIDERS: ATTEND Nurse Practitioner Acute Care
DX: T86.90 Unspecified complication of unspecified transplanted organ and tissue (principal); E83.40 Disorders of magnesium metabolism, unspecified; D89.9 Disorder involving the immune mechanism, unspecified; Z94.0 Kidney transplant status; Z79.60 Long term (current) use of unspecified immunomodulators and immunosuppressants; Y84.8 Other medical procedures as the cause of abnormal reaction of the patient, or of later complication, without mention of misadventure at the time of the procedure; Y92.89 Other specified places as the place of occurrence of the external cause

== ENCOUNTER → 2024-10-28 | Outpatient (CLI) | payer MEDICARE ==
[2024-10-28 09:21] LABS: BASO # 0.0 10*3/uL (0.0-0.1); BASO % 0.3 % (0.0-1.0); EOS # 0.1 10*3/uL (0.0-0.4); EOS % 1.3 % (1.0-4.0); MEAN CELL VOLUME 95.3 fl (80.0-94.0); MEAN CORPUSCULAR HGB 32.5 pg (27.0-31.0); MEAN PLATELET VOLUME 11.1 fl (9.6-12.3); MONO # 0.4 10*3/uL (0.1-1.0); MONO % 11.4 % (3.0-9.0); NEUT # 1.7 10*3/uL (2.3-7.9); NEUT % 45.4 % (47.0-73.0); NUCLEATED RED BLOOD CELL 0.0 % (0.0-0.0); NUCLEATED RED BLOOD CELL 0.0 10*3/uL (0.0-0.0); PLATELET COUNT AUTOMATED 105 10*3/uL (130-400); RED CELL DISTRI WIDTH 11.7 % (0-14.5)
[2024-10-28 10:05] LABS: BUN 15.0 mg/dl (9-23)
== END | disposition home or self-care (01) ==
LOC: LAB 09:01
PROVIDERS: ATTEND Nurse Practitioner Acute Care
DX: T86.40 Unspecified complication of liver transplant (principal); D89.9 Disorder involving the immune mechanism, unspecified; Z94.0 Kidney transplant status; Z79.60 Long term (current) use of unspecified immunomodulators and immunosuppressants; Y84.8 Other medical procedures as the cause of abnormal reaction of the patient, or of later complication, without mention of misadventure at the time of the procedure

== ENCOUNTER → 2024-11-04 | Outpatient (CLI) | payer MEDICARE ==
[2024-11-04 08:51] LABS: BASO # 0.0 10*3/uL (0.0-0.1); BASO % 0.6 % (0.0-1.0); EOS # 0.1 10*3/uL (0.0-0.4); EOS % 1.7 % (1.0-4.0); MEAN CELL VOLUME 92.9 fl (80.0-94.0); MEAN CORPUSCULAR HGB 32.6 pg (27.0-31.0); MEAN PLATELET VOLUME 11.1 fl (9.6-12.3); MONO # 0.5 10*3/uL (0.1-1.0); MONO % 12.5 % (3.0-9.0); NEUT # 1.6 10*3/uL (2.3-7.9); NEUT % 44.9 % (47.0-73.0); NUCLEATED RED BLOOD CELL 0.0 % (0.0-0.0); NUCLEATED RED BLOOD CELL 0.0 10*3/uL (0.0-0.0); PLATELET COUNT AUTOMATED 160 10*3/uL (130-400); RED CELL DISTRI WIDTH 11.7 % (0-14.5)
[2024-11-04 09:32] LABS: BUN 14.0 mg/dl (9-23)
== END | disposition home or self-care (01) ==
LOC: LAB 08:27
PROVIDERS: ATTEND Nurse Practitioner Acute Care
DX: T86.90 Unspecified complication of unspecified transplanted organ and tissue (principal); E83.40 Disorders of magnesium metabolism, unspecified; D89.9 Disorder involving the immune mechanism, unspecified; Z94.0 Kidney transplant status; Z79.60 Long term (current) use of unspecified immunomodulators and immunosuppressants; Y84.8 Other medical procedures as the cause of abnormal reaction of the patient, or of later complication, without mention of misadventure at the time of the procedure; Y92.89 Other specified places as the place of occurrence of the external cause

== ENCOUNTER → 2024-11-11 | Outpatient (CLI) | payer MEDICARE ==
[2024-11-11 08:50] LABS: BASO # 0.0 10*3/uL (0.0-0.1); BASO % 0.4 % (0.0-1.0); EOS # 0.1 10*3/uL (0.0-0.4); EOS % 1.6 % (1.0-4.0); MEAN CELL VOLUME 93.7 fl (80.0-94.0); MEAN CORPUSCULAR HGB 31.7 pg (27.0-31.0); MEAN PLATELET VOLUME 10.5 fl (9.6-12.3); MONO # 0.7 10*3/uL (0.1-1.0); MONO % 14.8 % (3.0-9.0); NEUT # 2.3 10*3/uL (2.3-7.9); NEUT % 51.7 % (47.0-73.0); NUCLEATED RED BLOOD CELL 0.0 % (0.0-0.0); NUCLEATED RED BLOOD CELL 0.0 10*3/uL (0.0-0.0); PLATELET COUNT AUTOMATED 194 10*3/uL (130-400); RED CELL DISTRI WIDTH 11.5 % (0-14.5)
[2024-11-11 09:34] LABS: BUN 16.0 mg/dl (9-23)
== END ==
LOC: LAB 08:33
PROVIDERS: ATTEND Nurse Practitioner Acute Care
DX: D89.9 Disorder involving the immune mechanism, unspecified (principal); E83.40 Disorders of magnesium metabolism, unspecified; T86.90 Unspecified complication of unspecified transplanted organ and tissue; Z94.0 Kidney transplant status; Z79.60 Long term (current) use of unspecified immunomodulators and immunosuppressants

== ENCOUNTER → 2024-11-19 | Outpatient (CLI) | payer MEDICARE ==
[2024-11-19 09:43] LABS: BASO # 0.0 10*3/uL (0.0-0.1); BASO % 0.5 % (0.0-1.0); EOS # 0.1 10*3/uL (0.0-0.4); EOS % 2.4 % (1.0-4.0); MEAN CELL VOLUME 93.3 fl (80.0-94.0); MEAN CORPUSCULAR HGB 31.0 pg (27.0-31.0); MEAN PLATELET VOLUME 10.7 fl (9.6-12.3); MONO # 0.8 10*3/uL (0.1-1.0); MONO % 14.2 % (3.0-9.0); NEUT # 3.7 10*3/uL (2.3-7.9); NEUT % 63.2 % (47.0-73.0); NUCLEATED RED BLOOD CELL 0.0 % (0.0-0.0); NUCLEATED RED BLOOD CELL 0.0 10*3/uL (0.0-0.0); PLATELET COUNT AUTOMATED 235 10*3/uL (130-400); RED CELL DISTRI WIDTH 11.8 % (0-14.5)
[2024-11-19 09:44] LABS: RETICULOCYTE % 1.39 % (0.50-2.50)
[2024-11-19 10:00] LABS: BILIRUBIN Negative (Negative); BLOOD 1+ (Negative); CLARITY Clear (Clear); COLOR Yellow (Yellow); KETONE Negative (Negative); LEUKO ESTERASE Trace (Negative); NITRITE Negative (Negative); PH 6.5 (4.5-8.0); SPECIFIC GRAVITY 1.015 (1.001-1.030); UROBILINOGEN 1.0 E.U./dl (0.0-1.0)
[2024-11-19 10:08] LABS: BUN 12.0 mg/dl (9-23)
[2024-11-19 10:12] LABS: BUN 12.0 mg/dl (9-23); GAMMA GLUTAMYL TRANSFERASE 69.0 U/L (0-73); LDL CHOLESTEROL 85.0 mg/dL (9-159); SGPT/ALT 11.0 U/L (5-49); T3 UPTAKE 35.3 % (22.4-36.7); THYROXINE (T4) TOTAL 9.9 ug/dl (4.5-10.9)
[2024-11-19 10:33] LABS: VITAMIN D, 25-HYDROXY 44.3 ng/mL (30-100)
[2024-11-19 10:37] LABS: BACTERIA 2+; RBC 21-30 rbc/hpf (0-2)
== END ==
LOC: LAB 08:51
PROVIDERS: Family Medicine; ATTEND Nurse Practitioner Acute Care
DX: Z12.5 Encounter for screening for malignant neoplasm of prostate (principal); E55.9 Vitamin D deficiency, unspecified; E78.5 Hyperlipidemia, unspecified; R79.89 Other specified abnormal findings of blood chemistry; R53.83 Other fatigue

== ENCOUNTER → 2024-11-25 | Outpatient (CLI) | payer MEDICARE ==
[2024-11-25 10:09] LABS: BASO # 0.0 10*3/uL (0.0-0.1); BASO % 0.7 % (0.0-1.0); EOS # 0.1 10*3/uL (0.0-0.4); EOS % 3.1 % (1.0-4.0); MEAN CELL VOLUME 94.2 fl (80.0-94.0); MEAN CORPUSCULAR HGB 31.2 pg (27.0-31.0); MEAN PLATELET VOLUME 9.9 fl (9.6-12.3); MONO # 0.4 10*3/uL (0.1-1.0); MONO % 8.4 % (3.0-9.0); NEUT # 2.7 10*3/uL (2.3-7.9); NEUT % 65.0 % (47.0-73.0); NUCLEATED RED BLOOD CELL 0.0 % (0.0-0.0); NUCLEATED RED BLOOD CELL 0.0 10*3/uL (0.0-0.0); PLATELET COUNT AUTOMATED 218 10*3/uL (130-400); RED CELL DISTRI WIDTH 11.9 % (0-14.5)
[2024-11-25 10:37] LABS: BUN 12.0 mg/dl (9-23)
== END ==
LOC: LAB 09:14
PROVIDERS: ATTEND Nurse Practitioner Acute Care
DX: T86.90 Unspecified complication of unspecified transplanted organ and tissue (principal); E83.40 Disorders of magnesium metabolism, unspecified; D89.9 Disorder involving the immune mechanism, unspecified; Z94.0 Kidney transplant status; Y65.8 Other specified misadventures during surgical and medical care

== ENCOUNTER → 2024-12-02 | Outpatient (CLI) | payer MEDICARE ==
[2024-12-02 08:57] LABS: BASO # 0.0 10*3/uL (0.0-0.1); BASO % 0.6 % (0.0-1.0); EOS # 0.2 10*3/uL (0.0-0.4); EOS % 4.7 % (1.0-4.0); MEAN CELL VOLUME 94.3 fl (80.0-94.0); MEAN CORPUSCULAR HGB 31.4 pg (27.0-31.0); MEAN PLATELET VOLUME 9.6 fl (9.6-12.3); MONO # 0.3 10*3/uL (0.1-1.0); MONO % 9.7 % (3.0-9.0); NEUT # 2.1 10*3/uL (2.3-7.9); NEUT % 60.8 % (47.0-73.0); NUCLEATED RED BLOOD CELL 0.0 % (0.0-0.0); NUCLEATED RED BLOOD CELL 0.0 10*3/uL (0.0-0.0); PLATELET COUNT AUTOMATED 132 10*3/uL (130-400); RED CELL DISTRI WIDTH 12.7 % (0-14.5)
[2024-12-02 09:29] LABS: BUN 13.0 mg/dl (9-23)
== END | disposition home or self-care (01) ==
LOC: LAB 08:37
PROVIDERS: ATTEND Nurse Practitioner Acute Care
DX: T86.90 Unspecified complication of unspecified transplanted organ and tissue (principal); E83.40 Disorders of magnesium metabolism, unspecified; D89.9 Disorder involving the immune mechanism, unspecified; Z94.0 Kidney transplant status; Z79.60 Long term (current) use of unspecified immunomodulators and immunosuppressants; Y84.8 Other medical procedures as the cause of abnormal reaction of the patient, or of later complication, without mention of misadventure at the time of the procedure

== ENCOUNTER → 2024-12-10 | Outpatient (CLI) | payer MEDICARE ==
[2024-12-10 08:58] LABS: BASO # 0.0 10*3/uL (0.0-0.1); BASO % 0.5 % (0.0-1.0); EOS # 0.1 10*3/uL (0.0-0.4); EOS % 1.6 % (1.0-4.0); MEAN CELL VOLUME 93.1 fl (80.0-94.0); MEAN CORPUSCULAR HGB 30.7 pg (27.0-31.0); MEAN PLATELET VOLUME 9.7 fl (9.6-12.3); MONO # 0.5 10*3/uL (0.1-1.0); MONO % 12.6 % (3.0-9.0); NEUT # 2.2 10*3/uL (2.3-7.9); NEUT % 58.8 % (47.0-73.0); NUCLEATED RED BLOOD CELL 0.0 % (0.0-0.0); NUCLEATED RED BLOOD CELL 0.0 10*3/uL (0.0-0.0); PLATELET COUNT AUTOMATED 173 10*3/uL (130-400); RED CELL DISTRI WIDTH 13.9 % (0-14.5)
[2024-12-10 09:42] LABS: BUN 15.0 mg/dl (9-23)
== END | disposition home or self-care (01) ==
LOC: LAB 08:24
PROVIDERS: ATTEND Nurse Practitioner Acute Care
DX: T86.90 Unspecified complication of unspecified transplanted organ and tissue (principal); D89.9 Disorder involving the immune mechanism, unspecified; E83.40 Disorders of magnesium metabolism, unspecified; Z79.60 Long term (current) use of unspecified immunomodulators and immunosuppressants; X58.XXXA Exposure to other specified factors, initial encounter; Y93.89 Activity, other specified; Y92.89 Other specified places as the place of occurrence of the external cause; Y99.8 Other external cause status

== ENCOUNTER → 2024-12-17 | Outpatient (CLI) | payer MEDICARE ==
[2024-12-17 08:54] LABS: BASO # 0.0 10*3/uL (0.0-0.1); BASO % 0.5 % (0.0-1.0); EOS # 0.1 10*3/uL (0.0-0.4); EOS % 1.5 % (1.0-4.0); MEAN CELL VOLUME 94.9 fl (80.0-94.0); MEAN CORPUSCULAR HGB 31.2 pg (27.0-31.0); MEAN PLATELET VOLUME 9.9 fl (9.6-12.3); MONO # 0.5 10*3/uL (0.1-1.0); MONO % 12.3 % (3.0-9.0); NEUT # 2.1 10*3/uL (2.3-7.9); NEUT % 52.8 % (47.0-73.0); NUCLEATED RED BLOOD CELL 0.0 % (0.0-0.0); NUCLEATED RED BLOOD CELL 0.0 10*3/uL (0.0-0.0); PLATELET COUNT AUTOMATED 240 10*3/uL (130-400); RED CELL DISTRI WIDTH 14.9 % (0-14.5)
[2024-12-17 09:46] LABS: BUN 13.0 mg/dl (9-23)
== END | disposition home or self-care (01) ==
LOC: LAB 08:37
PROVIDERS: ATTEND Nurse Practitioner Acute Care
DX: T86.90 Unspecified complication of unspecified transplanted organ and tissue (principal); E83.40 Disorders of magnesium metabolism, unspecified; D89.9 Disorder involving the immune mechanism, unspecified; Z94.0 Kidney transplant status; Z79.60 Long term (current) use of unspecified immunomodulators and immunosuppressants

== ENCOUNTER → 2025-01-08 | Outpatient (CLI) | payer MEDICARE ==
[2025-01-08 09:25] LABS: BASO # 0.0 10*3/uL (0.0-0.1); BASO % 0.5 % (0.0-1.0); EOS # 0.2 10*3/uL (0.0-0.4); EOS % 2.7 % (1.0-4.0); MEAN CELL VOLUME 97.7 fl (80.0-94.0); MEAN CORPUSCULAR HGB 30.7 pg (27.0-31.0); MEAN PLATELET VOLUME 10.2 fl (9.6-12.3); MONO # 0.5 10*3/uL (0.1-1.0); MONO % 9.2 % (3.0-9.0); NEUT # 3.5 10*3/uL (2.3-7.9); NEUT % 63.7 % (47.0-73.0); NUCLEATED RED BLOOD CELL 0.0 % (0.0-0.0); NUCLEATED RED BLOOD CELL 0.0 10*3/uL (0.0-0.0); PLATELET COUNT AUTOMATED 215 10*3/uL (130-400); RED CELL DISTRI WIDTH 14.5 % (0-14.5)
[2025-01-08 09:53] LABS: BUN 15.0 mg/dl (9-23)
== END | disposition home or self-care (01) ==
LOC: LAB 08:47
PROVIDERS: ATTEND Nurse Practitioner Acute Care
DX: T86.90 Unspecified complication of unspecified transplanted organ and tissue (principal); E83.40 Disorders of magnesium metabolism, unspecified; D89.9 Disorder involving the immune mechanism, unspecified; Z79.60 Long term (current) use of unspecified immunomodulators and immunosuppressants; Z94.0 Kidney transplant status; Y65.8 Other specified misadventures during surgical and medical care

== ENCOUNTER → 2025-02-03 | Outpatient (CLI) | payer MEDICARE ==
[2025-02-03 09:27] LABS: BASO # 0.0 10*3/uL (0.0-0.1); BASO % 0.6 % (0.0-1.0); EOS # 0.2 10*3/uL (0.0-0.4); EOS % 3.4 % (1.0-4.0); MEAN CELL VOLUME 92.6 fl (80.0-94.0); MEAN CORPUSCULAR HGB 30.7 pg (27.0-31.0); MEAN PLATELET VOLUME 9.7 fl (9.6-12.3); MONO # 0.5 10*3/uL (0.1-1.0); MONO % 10.8 % (3.0-9.0); NEUT # 2.8 10*3/uL (2.3-7.9); NEUT % 59.1 % (47.0-73.0); NUCLEATED RED BLOOD CELL 0.0 % (0.0-0.0); NUCLEATED RED BLOOD CELL 0.0 10*3/uL (0.0-0.0); PLATELET COUNT AUTOMATED 199 10*3/uL (130-400); RED CELL DISTRI WIDTH 13.8 % (0-14.5)
[2025-02-03 10:04] LABS: BUN 13.0 mg/dl (9-23)
== END | disposition home or self-care (01) ==
LOC: LAB 09:06
PROVIDERS: ATTEND Nurse Practitioner Acute Care
DX: E83.40 Disorders of magnesium metabolism, unspecified (principal); T86.90 Unspecified complication of unspecified transplanted organ and tissue; D89.9 Disorder involving the immune mechanism, unspecified; Z79.60 Long term (current) use of unspecified immunomodulators and immunosuppressants; Z94.0 Kidney transplant status

== ENCOUNTER → 2025-03-16 | Outpatient (CLI) | payer MEDICARE ==
[2025-03-16 09:39] LABS: BASO # 0.0 10*3/uL (0.0-0.1); BASO % 0.3 % (0.0-1.0); EOS # 0.1 10*3/uL (0.0-0.4); EOS % 1.9 % (1.0-4.0); MEAN CELL VOLUME 89.6 fl (80.0-94.0); MEAN CORPUSCULAR HGB 29.7 pg (27.0-31.0); MEAN PLATELET VOLUME 9.9 fl (9.6-12.3); MONO # 0.3 10*3/uL (0.1-1.0); MONO % 10.2 % (3.0-9.0); NEUT # 1.7 10*3/uL (2.3-7.9); NEUT % 54.0 % (47.0-73.0); NUCLEATED RED BLOOD CELL 0.0 % (0.0-0.0); NUCLEATED RED BLOOD CELL 0.0 10*3/uL (0.0-0.0); PLATELET COUNT AUTOMATED 188 10*3/uL (130-400); RED CELL DISTRI WIDTH 13.0 % (0-14.5)
[2025-03-16 10:27] LABS: BUN 17.0 mg/dl (9-23)
[2025-03-16 10:33] LABS: BUN 16.0 mg/dl (9-23)
== END | disposition home or self-care (01) ==
LOC: LAB 09:01
PROVIDERS: Internal Medicine Nephrology; ATTEND Urology
DX: D89.9 Disorder involving the immune mechanism, unspecified (principal); E83.40 Disorders of magnesium metabolism, unspecified; T86.90 Unspecified complication of unspecified transplanted organ and tissue; Z94.0 Kidney transplant status; Z79.60 Long term (current) use of unspecified immunomodulators and immunosuppressants